=== PATIENT | male | born 1975 | race Two or more races ===

== ENCOUNTER 2025-03-14 16:06 | Inpatient (IN) | payer OTHER, SELFPAY ==
--- NOTE | ~2025-03-14 | MR_ITS ---
CLINICAL HISTORY: elevated lfts -?choledocholithiasis MR abdomen without, MRCP without gadolinium Comparison: None provided Findings: Lung bases are clear. Liver, adrenal glands, kidneys, and pancreas are within normal limits. Large amount of small filling defects are noted within the gallbladder consistent with layering small stones. Few small filling defects are also noted within the cystic duct. Small filling defect is also noted within the common bile duct ( coronal image 14 in series 4) CBD is mildly dilated measuring 1.0 cm in diameter moderately distended gallbladder with diffuse gallbladder wall thickening measuring 6.2 mm in thickness as well as small Amparo cholecystic free fluid. The solid organs are within normal limits. IMPRESSION: Moderately distended gallbladder with large amount of layering small stones, moderate gallbladder wall thickening and pericholecystic fluid. Filling defects are noted within the cystic duct and common bile duct, consistent with acute cholecystitis and choledocholithiasis. This document has been electronically signed by: Henri Saravia MD on 03/14/2025 21:52:03
--- NOTE | ~2025-03-14 | CT_ITS ---
CLINICAL HISTORY: RUQ tenderness CT abdomen and pelvis with contrast Comparison: None provided Findings: The lung bases are clear. Markedly distended gallbladder with moderate gallbladder wall thickening and pericholecystic stranding. No definite radiopaque gallstone is seen. Mildly prominent CBD measuring up to 9 mm in diameter. Mild central intrahepatic ductal dilation. Findings are concerning for acute cholecystitis. Solid organs are grossly unremarkable. No bowel obstruction, pneumoperitoneum, or pneumatosis. Pelvic contents unremarkable. Normal appendix. No acute fracture. IMPRESSION: Markedly distended gallbladder with moderate gallbladder wall thickening and pericholecystic stranding. No definite radiopaque gallstone is seen. Mildly prominent CBD measuring up to 9 mm in diameter. Mild central intrahepatic ductal dilation. Findings are concerning for acute cholecystitis. Right upper quadrant ultrasound is recommended for further evaluation. This document has been electronically signed by: Henri Saravia MD on 03/14/2025 19:20:17
--- NOTE | ~2025-03-14 | FL_ITS ---
EXAMINATION: FL GUIDANCE ONLY HISTORY: ERCP COMPARISON: Correlation is made with an MRCP dated 03/14/2025. TECHNIQUE: Fluoroscopy time: 1 minute, 51.5 seconds. Cumulative Dose: 33.469 mGy. DAP: 14.559 mGym2 Images: 9. FINDINGS: Fluoroscopic spot films demonstrate a normal caliber common bile duct. The initial images demonstrate filling defects in the distal common bile duct, consistent with the calculi noted on MRCP. The calculi are not identified on subsequent images. FL/FL guidance in OR IMPRESSION: Fluoroscopy during procedure. Please see procedure report for additional information. Electronically signed by: Mono Huff MD 03/19/2025 07:02 AM EDT
--- NOTE | ~2025-03-14 | US_ITS ---
CLINICAL HISTORY: RUQ pain US abdomen limited. COMPARISON: None provided. Technique: Real time sonographic imaging, including color-flow imaging, was performed by the senior packaging engineer. Multiple inside outside sales representative static images were saved for review. FINDINGS: The visualized portions of the pancreas appear normal. The liver has normal echotexture. The main portal vein is antegrade. Liver, right lobe size: 16.8 cm, borderline enlarged The gallbladder is normal in size. Multiple small cholelithiasis present. Likely sludge present within the gallbladder. No pericholecystic fluid. There is a positive sonographic Tomlinson's sign. Gallbladder wall: 4 mm, thickened Common bile duct: 5 mm, normal. Right kidney: Cortical medullary differentiation is maintained. Normal color flow by Doppler. No calculus or focal parenchymal abnormality identified. No hydronephrosis. Right kidney length: 10.3 cm No free intraperitoneal fluid identified. IMPRESSION: 1. Probable cholecystitis. Gallbladder wall thickening, positive sonographic Tomlinson's sign and multiple small cholelithiasis present. This document has been electronically signed by: Igor Case MD on 03/14/2025 18:01:22
[2025-03-14 16:14] VITALS: BP 125/72; PULSE 80; RESP 16; TEMP 37.2; O2SAT 98; BMI 32.8
--- NOTE | 2025-03-14 16:26 | ECG_ITS ---
Test Reason : ap Blood Pressure : */* mmHG Vent. Rate : 86 BPM Atrial Rate : 86 BPM P-R Int : 136 ms QRS Dur : 80 ms QT Int : 350 ms P-R-T Axes : 2 26 -1 degrees QTcB Int : 418 ms Normal sinus rhythm Normal ECG No previous ECGs available Referred By: Josue Gutierrez Electronically Signed By: DIANE REYNOLDS MD
--- NOTE | 2025-03-14 16:28 | ED.GENADULT ---
HPI - General Adult General Chief complaint: Abdominal Pain Stated complaint: abd pain Time Seen by Provider: 03/14/25 17:35 Source: patient and competitive shopper Mode of arrival: ambulatory Limitations: no limitations History of Present Illness ED Provider: DR. Del Rio HPI narrative: A 49-year-old male came in for evaluation of right side abdominal pain x 2 weeks pain is been intermittent associated with nausea, vomiting, patient also reports dark orange urine for the past 2 weeks, patient s/p gastric sleeve bypass 5 years ago at [facility] but he notice decreased p.o. intake and he is losing more weight than usual. No fever, no chills, normal bowel movement, passing flatus. Related Data Home Medications ?Medication ?Instructions ?Recorded ?Confirmed No Known Home Meds 03/14/25 03/14/25 Allergies Allergy/AdvReac Type Severity Reaction Status Date / Time No Known Allergies Allergy Verified 03/14/25 16:17 Review of Systems Review of Systems: All other systems are reviewed and are negative Constitutional: Reports as per HPI and Reports no additional constitutional complaints Eyes: Reports as per HPI and Reports no additional eye complaints Reports system reviewed and no additional complaints, except as documented Cardiovascular: Reports as per HPI and Reports no additional cardiovascular complaints Respiratory: Reports as per HPI and Reports no additional respiratory complaints Gastrointestinal: Reports as per HPI and Reports no additional gastrointestinal complaints Genitourinary: Reports no additional female genitourinary complaints Musculoskeletal: Reports no additional musculoskeletal complaints Skin/Breast: Reports system reviewed and no additional complaints, except as docu Psychiatric: Reports no additional psychiatric complaints Endocrine: Reports no additional endocrine complaints Hematologic/Lymphatic: Reports no additional hematologic/lymphatic complaints Allergic/Immunologic: Reports no additional allergic/immunologic complaints Reports system reviewed and no additional complaints, except as documented and Reports Abnormal speech present [facility] Social History Social History Household Members: Spouse Housing: Apartment Do you presently have visiting nurse or other home services: No Patient Tobacco Use Status: Never used Tobacco Smoked in Last 30 Days: No e-Cigarette/Vaping Use: Never Used Second Hand Smoke Exposure: No Use of substances other than those prescribed or required for medical reasons: No Currently Displaying Signs/Symptoms of Drug Intoxication Withdrawal: No Have you been hit, kicked, punched, or otherwise hurt by someone within the past year? If so, by whom?: No Do you feel safe in your current relationship?: Yes Is there a partner from a previous relationship who is making you feel unsafe now?: No Are you made to feel afraid or neglected: No Advance Directives: No Advance Directives Information Provided: No Do you have a plan to hurt others: No Plan Recently lost weight without trying: No Eating poorly because of decreased appetite: No Nutrition Risks: No Nutritional Risk Poor oral hygiene: No Physical Exam ED Vital Signs: Vital Signs - 24 hr 03/14/25 16:14 03/14/25 17:35 Temperature 98.9 F 97.9 F Pulse Rate 80 96 Respiratory Rate 16 15 Blood Pressure 125/72 113/67 Pulse Oximetry 98 99 Oxygen Delivery Method Room Air Room Air BMI result Body Mass Index 32.8 Vital signs have been reviewed and appear to be correct. Blood pressure elevated. Heart rate normal. Respiratory rate normal. Temperature normal. Oxygen saturation normal. Appearance: Alert. Oriented X3. No acute distress. Head: Normal external exam. Normocephalic. Atraumatic. No Ulloa signs noted. No raccoon eyes noted Eyes: PERRLA. EOMI. Conjunctiva and sclera normal. Eyelids normal. ENT: TM's Normal. Pharynx normal. Uvula midline. Moist mucous membranes. No trismus noted. No drooling noted. No muffled voice noted. Neck: Normal inspection. Neck supple. FROM. No adenopathy. Thyroid Normal. No meningeal signs. No neck mass noted. CVS: Normal heart rate and rhythm. Heart sound normal. No murmurs noted. Pulses normal throughout. Respiratory: No respiratory distress. Painless inspiration. Breath sounds normal. No wheezes/rales/rhonchi noted. Chest nontender. No accessory muscle usage noted or decreased air movement noted. Abdomen: Soft, RUQ tenderness, +Tomlinson signs, +epigastric tenderness. Bowel sounds normal in all 4 quadrants. No distention noted. No organomegaly noted. No visible injury noted. Back: No CVA tenderness. Full range of motion noted. Skin: Skin warm and dry. Normal skin color. Normal skin turgor. No rashes/lesions/lacerations noted. Extremities: No lower extremity edema. Extremities exhibit normal range of motion. Extremities nontender. Neuro: Oriented X 3. Cranial nerve exam: II-XII are grossly intact No motor deficit. No sensory deficit. Reflexes normal. Course Course Course Narrative: RME: 49-year-old male presents to ED for epigastric right upper quadrant pain described as sharp stabbing and acid reflux. Patient denies any fever chills chest pain or shortness of breath. Physical exam positive epigastric right upper quadrant tenderness on palpation. Reevaluation(s) Reevaluation #1: A 49-year-old male with 2 weeks of right upper quadrant abdominal pain seen by his PCP and was treated for gastritis, patient returned today for persistence of pain with nausea and vomiting, workup revealed acute cholecystitis with mild pancreatitis and transaminitis. IV hydration, IV Zosyn. Admission. Time: 19:30 Reevaluation #2: CT is consistent with acute cholecystitis with CBD dilation, the case was discussed with Dr. Gilliam who will admit the patient. And get inpatient MRCP. Time: 20:24 Medications Administered Generic Name Dose Route Start Last Admin Trade Name Freq PRN Reason Stop Dose Admin Enoxaparin Sodium 40 mg 03/14/25 21:00 03/14/25 20:56 Enoxaparin Sodium 40 Mg/0.4 Ml Syringe SUBCUT Not Given Q24H FRANCA Sodium Chloride 1,000 mls @ 150 mls/hr 03/14/25 20:30 03/15/25 10:41 Ns IVCONT 150 mls/hr .Q6H40M FRANCA Administration Piperacillin Sod/Tazobactam 50 mls @ 100 mls/hr 03/15/25 00:00 03/15/25 06:22 Sod 3.375 gm/ Sodium Chloride IV Infused RQ6H FRANCA Infusion Morphine Sulfate 4 mg 03/14/25 20:21 03/15/25 07:33 Morphine Sulfate 4 Mg/Ml Cartridge IVPUSH 4 mg Q4H PRN Administration Pain, Severe (Pain Scale 7-10) Protocol Sodium Chloride 3 ml 03/15/25 00:00 03/15/25 07:11 0.9 % Sodium Chloride Flush 3 Ml Syringe IVFLUSH Not Given QSHIFT FRANCA Discontinued Medications Generic Name Dose Route Start Last Admin Trade Name Freq PRN Reason Stop Dose Admin Sodium Chloride 1,000 mls @ 999 mls/hr 03/14/25 18:13 03/14/25 19:23 Ns IV 03/14/25 19:13 Infused .Q1H1M ONE Infusion Piperacillin Sod/Tazobactam 50 mls @ 100 mls/hr 03/14/25 18:13 03/14/25 18:49 Sod 3.375 gm/ Sodium Chloride IV 03/14/25 18:42 Infused ONCE ONE Infusion Iohexol 100 ml 03/14/25 18:38 03/14/25 18:40 Iohexol 350 Mg/Ml 100 Ml Infus..Btl IV 03/14/25 18:39 85 ml ONCE ONE Administration Medical Decision Making Differential Diagnosis Differential Diagnoses: The differential diagnosis associated with the presentation includes (Acute gastritis, acute esophagitis, acute cholecystitis, ureterolithiasis, pyelonephritis, pancreatitis, electrolyte derangement, severe anemia.) Admission/Observation Consideration of admission/observation: Escalation of care including admission/observation considered Consult Healthcare Provider Management of the patient was discussed with: Shoulder Joiner (Dr. Gilliam) Lab Data MDM Lab Attestation statement: I reviewed the patient's lab results. 03/15/25 06:05 03/15/25 06:05 Labs: Lab Results 03/14/25 03/14/25 03/14/25 Range/Units 16:57 17:40 18:26 WBC 10.2 (4.8-10.8) X10*3/uL RBC 4.67 (4.60-5.80) X10*6/uL Hgb 13.6 L (14.0-18.0) g/dl Hct 42.0 (42.0-52.0) % MCV 89.9 (80.0-98.0) fL MCH 29.1 (27.0-33.0) pg MCHC 32.4 (31.0-36.0) g/dl RDW 14.5 (11.0-16.0) % Plt Count 334 (160-400) X10*3/uL MPV 9.7 (9.4-12.4) fL Immature Gran % (Auto) 0.5 H (0.0-0.4) % Neut % (Auto) 65.9 (45-73) % Lymph % (Auto) 20.9 (20-40) % Howard % (Auto) 10.0 (2-11) % Eos % (Auto) 2.3 (0-4) % Baso % (Auto) 0.4 (0-2) % Lymph # (Auto) 2.1 (1.2-4.9) X10*3/uL Howard # (Auto) 1.0 (0.1-1.2) X10*3/uL Eos # (Auto) 0.2 (0.0-0.4) X10*3/uL Baso # (Auto) 0.0 (0.0-0.2) X10*3/uL Abs Immat Gran (auto) 0.05 H (0.00-0.03) X10*3/uL Absolute Neuts (auto) 6.7 (2.0-8.3) x10*3/uL Absolute Nucleated RBC 0.000 (0.0-0.012) X10*3/uL Nucleated RBC % (auto) 0.0 (0.0-0.2) /100WBC PT 12.6 H (10.9-12.4) SEC INR 1.1 (0.9-1.1) APTT 30.3 (26.0-36.8) SEC Sodium 140 (135-145) mmol/L Potassium 3.6 (3.3-5.1) mmol/L Chloride 102 (96-108) mmol/L Carbon Dioxide 28 (22-29) mmol/L Anion Gap 14 (12-20) BUN 10 (9-16) mg/dL Creatinine 0.79 (0.5-1.4) mg/dL Estim Creat Clear Calc 122.8 Estimated GFR > 60 Random Glucose 164 H (60-115) mg/dL Lactic Acid 1.1 (0.5-2.0) mmol/L Calcium 9.4 (8.4-10.2) mg/dL Total Bilirubin 2.0 H (0.0-1.0) mg/dL AST 205 H (5-37) U/L ALT 372 H (0-40) U/L Alkaline Phosphatase 633 H (39-117) U/L Troponin I High Sens < 2.7 (<3.5-35.0) ng/L B-Natriuretic Peptide 15 (<100) pg/mL Total Protein 7.3 (6.5-8.0) g/dL Albumin 3.9 (3.5-5.0) g/dL Lipase 133 H (8-78) U/L Urine Color DK YELLOW Urine Appearance Clear Urine pH 5.5 (5.0-9.0) Ur Specific [place] >= 1.030 H (1.005-1.025) Urine Protein 30 (1+) H (Neg-Trace) mg/dL Urine Glucose (UA) 100 H (Negative) mg/dL Urine Ketones Trace (Negative) mg/dL Urine Blood Negative (Negative) Urine Nitrite Positive H (Negative) Ur Leukocyte Esterase Negative (Negative) Urine RBC 0-2 (0-2) /HPF Urine WBC 0-5 (0-5) /HPF Ur Squamous Epith Cells 3-5 (0-2) /HPF Urine Bacteria None Seen (None Seen) Hyaline Casts 0-2 (0-2) /LPF Granular Casts Present Independent Interpretation I performed an independent interpretation of an: Ultrasound (Abdomen:. Probable cholecystitis. Gallbladder wall thickening, positive sonographic Tomlinson's sign and multiple small cholelithiasis present.) Radiology Impression Discussion of test interpretation with radiology: I have reviewed the radiologist's reading. Discharge Plan Discharge Clinical Impression: Acute cholecystitis, Transaminitis Patient Disposition: Admitted As Inpatient Interventions: Admission Worksheet (ED) Last Done: 03/14/25 23:46 Discharge Date/Time: 03/15/25 00:44
[2025-03-14 17:02] LABS: MANUAL DIFF FLAG NO
[2025-03-14 17:04] LABS: Appearance Urine Clear; Glucose Urine UA 100 mg/dL (Negative); PH 5.5 (5.0-9.0); Specific Gravity - Urine >= 1.030 (1.005-1.025); UMIC TRIGGER UACC YES
[2025-03-14 17:06] LABS: Hematocrit 42.0 % (42.0-52.0); Hemoglobin 13.6 g/dl (14.0-18.0); Imm Gran Abs Auto 0.05 X10*3/uL (0.00-0.03); Imm Gran Pct Auto 0.5 % (0.0-0.4); Lymphocytes Absolute Auto 2.1 X10*3/uL (1.2-4.9); Mean Corpuscular HGB Conc 32.4 g/dl (31.0-36.0); Mean Corpuscular Hemoglobin 29.1 pg (27.0-33.0); Mean Corpuscular Volume 89.9 fL (80.0-98.0); NRBC Abs Auto 0.000 X10*3/uL (0.0-0.012); NRBC Pct Auto 0.0 /100WBC (0.0-0.2); Platelet Count 334 X10*3/uL (160-400); Red Blood Count 4.67 X10*6/uL (4.60-5.80); White Blood Count 10.2 X10*3/uL (4.8-10.8)
[2025-03-14 17:12] LABS: INTERNATIONAL NORM RATIO 1.1 (0.9-1.1); Prothrombin Time 12.6 SEC (10.9-12.4)
[2025-03-14 17:15] LABS: Partial Thromboplastin Time 30.3 SEC (26.0-36.8)
[2025-03-14 17:23] LABS: Lipase 133 U/L (8-78)
[2025-03-14 17:26] LABS: UACC Culture Trigger YES
[2025-03-14 17:28] LABS: B Type Natriuretic Peptide 15 pg/mL (<100)
[2025-03-14 17:34] LABS: Troponin-I High Sensitivity < 2.7 ng/L (<3.5-35.0)
[2025-03-14 17:35] VITALS: BP 113/67; PULSE 96; RESP 15; TEMP 36.6; O2SAT 99
[2025-03-14 17:58] LABS: Alanine Aminotransferase 372 U/L (0-40); Albumin Level 3.9 g/dL (3.5-5.0); Alkaline Phosphatase 633 U/L (39-117); Anion Gap 14 (12-20); Aspartate Amino Transferase 205 U/L (5-37); Blood Urea Nitrogen 10 mg/dL (9-16); Calcium 9.4 mg/dL (8.4-10.2); Carbon Dioxide 28 mmol/L (22-29); Chloride 102 mmol/L (96-108); Creatinine Clr Calc Pharmacy 122.8; Estimated Glomerular Filt Rate > 60; Potassium 3.6 mmol/L (3.3-5.1); Sodium 140 mmol/L (135-145); Total Protein 7.3 g/dL (6.5-8.0)
[2025-03-14] MEDS: iohexoL 350 MG/ML 100 ML INFUS..BTL IV (18:40)
--- NOTE | 2025-03-14 21:00 | PC.NURSE ---
re: delay in maintenance fluid admin: pt taken in MRI for MRCP at this time
[2025-03-14 21:20] VITALS: BP 134/61; PULSE 75; RESP 16; TEMP 36.8; O2SAT 98
--- NOTE | 2025-03-14 21:29 | PHA.MEDREC ---
Pharmacy Consult ? Medication Reconciliation Pharmacy has completed the medication reconciliation. Spoke to patient and pt confirmed he is not taking any medication at home. He was prescribed sucralfate recently for abdominal pain and multivitamin to start taking after finishing a course of the sucralfate. The patient didn't feel that the sucralfate helped his pain so he stopped taking it hence he hasn't started taking the multivitamin yet.
[2025-03-14 22:11] LABS: Lipase 131 U/L (8-78)
--- NOTE | 2025-03-14 22:19 | PC.NURSE ---
Summary of care: A 49yo M presents to ED from home for evaluation of R abdominal pain x 2 weeks. Pt A&O x4 independent with ADL's at baseline, fully ambulatory, pleasant, and cooperative with care. evaluation of right side abdominal pain x 2 weeks. Pt rates his pain 3/10, intermittent, with nausea, vomiting. Labs were obtained and 20g IV in R-AC was placed. LFT's elevated, pt had CT which was significant for acute cholecystitis. Pt was admitted to Surgery service, MRCP obtained tonight- Pt NPO at this time. NS infusing at 150ml/hr. Plan is for further eval and tx of acute cholecystitis.
--- NOTE | 2025-03-15 00:13 | P.HPGS_ITS ---
History of Present Illness History of Present Illness Date of Service: 03/15/25 Chief complaint: abdo pain Narrative: Danish Head is a 49 year old male who resents to the ER with a 2 week history of not feeling well- he has been having vomiting and abdominal pain - epigastric area and to the right upper quadrant. Recently noted that urine has been very dark. He went to see his pcp who thought maybe he had an ulcer and gave him sucralfat which didnt do much. the symptms were woresening including the pain and so he came here to be evaluated. Here lfts noted to be elevated, u/s showing cholecystitis and dilated CBD - MRCP carried out [facility] shows stones in GB, BCD and cystic duct. Pt feeling better now Pt is s/p sleeve gastrectomy at [facility] 5 yrs ago adn has lost 100lbs. [facility] Social History Social History Patient Tobacco Use Status: Never used Tobacco Smoked in Last 30 Days: No Use of substances other than those prescribed or required for medical reasons: No Advance Directives: No Advance Directives Information Provided: No Do you have a plan to hurt others: No Plan Meds Allergies Allergy/AdvReac Type Severity Reaction Status Date / Time No Known Allergies Allergy Verified 03/14/25 16:17 Active Medications: Current Medications Enoxaparin Sodium (Enoxaparin Sodium 40 Mg/0.4 Ml Syringe) 40 mg SUBCUT Q24H [facility] Last Admin: 03/14/25 20:56 Dose: Not Given Sodium Chloride (Ns) 1,000 mls @ 150 mls/hr IVCONT .Q6H40M [facility] Last Admin: 03/14/25 21:19 Dose: 150 mls/hr Piperacillin Sod/Tazobactam (Sod 3.375 gm/ Sodium Chloride) 50 mls @ 100 mls/hr IV RQ6H [facility] Morphine Sulfate (Morphine Sulfate 4 Mg/Ml Cartridge) 4 mg IVPUSH Q4H PRN; Protocol PRN Reason: Pain, Severe (Pain Scale 7-10) Sodium Chloride (0.9 % Sodium Chloride Flush 3 Ml Syringe) 3 ml IVFLUSH QSHIFT [facility] Home Medications ?Medication ?Instructions ?Recorded ?Confirmed ?Last Taken ?Type No Known Home Meds 03/14/25 03/14/25 Un known History Physical Exam Vital Signs: Vital Signs: Last Vital Signs Temp 98.2 F 03/14/25 21:20 Pulse 75 03/14/25 21:20 Resp 16 03/14/25 21:20 BP 134/61 03/14/25 21:20 Pulse Ox 98 03/14/25 21:20 O2 Del Method Room Air 03/14/25 21:20 BMI result Body Mass Index 32.8 Const: General: cooperative, healthy appearing and comfortable Orientation/consciousness: oriented to time Limitations: crutches Eyes: Other: mild jaundice GI: Other: abdomen -soft mild tender nondistended Neuro: General: oriented to time Results Results Labs: Short CBC 03/14/25 Range/Units 16:57 WBC 10.2 (4.8-10.8) X10*3/uL Hgb 13.6 L (14.0-18.0) g/dl Hct 42.0 (42.0-52.0) % Plt Count 334 (160-400) X10*3/uL BMP 03/14/25 17:40 Sodium 140 Potassium 3.6 Chloride 102 Carbon Dioxide 28 BUN 10 Creatinine 0.79 Calcium 9.4 Liver Function 03/14/25 Range/Units 17:40 Total Bilirubin 2.0 H (0.0-1.0) mg/dL AST 205 H (5-37) U/L ALT 372 H (0-40) U/L Alkaline Phosphatase 633 H (39-117) U/L Albumin 3.9 (3.5-5.0) g/dL Urine 03/14/25 Range/Units 16:57 Urine Color DK YELLOW Urine Appearance Clear Urine pH 5.5 (5.0-9.0) Ur Specific [place] >= 1.030 H (1.005-1.025) Urine Protein 30 (1+) H (Neg-Trace) mg/dL Urine Glucose (UA) 100 H (Negative) mg/dL Additional studies: [facility] ? Diagnostics Subcategory All Activity ??:?? All Time ??:?? All Subcategories Filter Lab Imaging Microbiology Pathology Blood Bank Tests Cardiovascular Other DATE TYPE STATUS REF RANGE/AUTHOR Hx 03/14/25 21:52 Cholangiopancreatography MRI Signed Henri Saravia 03/14/25 19:20 Abdomen/Pelvis CT Signed Henri Saravia 03/14/25 18:01 Abdomen Ultrasound Signed Igor Case Joel Acute 49, M?1975 MRN#? [id number] ADM IN,?HO.S3??386?-1? 5ft 7in 209lb 3.499oz BSA: 2.12m? BMI: 32.8kg/m? Acc#? [id number] Full Code Allergies No Known Allergies Problems ? ONSET Gallstone pancreatitis Transaminitis Acute cholecystitis Vital Signs 03/14/25 21:20 BP 134/61? Pulse 75? Resp 16? Temp 98.2 F? O2 Sat 98? Delivery Room Air? Home Meds Confirmed Prescription Monitoring Program MEDICATIONS (INSTRUCTIONS) LAST TAKEN Active No Known Home Meds My Widget No Data to Display Diagnostics Reports Danish Topete??49??M??1975 ? Allergy/Adv: No Known Allergies Close Cholangiopancreatography MRI (Signed) Henri Saravia - 03/14/25 Abdomen/Pelvis CT (Signed) ManjitHenri - 03/14/25 Abdomen Ultrasound (Signed) Igor Case - 03/14/25 Launch?Image [place] [id number] Magnetic Resonance Report Signed with Sammie Patient: Danish Topete MR#: [id number] : 1975 Acct:[id number] Age/Sex: 49 / M ADM Date: 03/14/25 Loc: [facility]: Loan Gilliam MD Ordering Physician: Loan Gilliam MD Date of Service: 03/14/25 Procedure(s): MR MRCP Accession Number(s): [id number] cc: Physician,None ; Loan Gilliam MD~ ADDENDUMThis document has been electronically signed by: Henri Saravia MD on 03/14/2025 21:52:03 ADDENDUM: This report was discussed with Almita Vega Supervisor Special Services on Mar 14, 2025 22:07:00 EDT. This document has been electronically signed by: Cierra Tellez on 03/14/2025 22:07:29 Addendum Dictated By: Henri Saravia MD Addendum Signed By: <Electronically signed by Henri Saravia MD in [place]> 03/14/252207 Addendum Cosigned By: DD/ /05/2151 TD/TT: 03/14/2512/04/2206 CLINICAL HISTORY: elevated lfts -?choledocholithiasis MR abdomen without, MRCP without gadolinium Comparison: None provided Findings: Lung bases are clear. Liver, adrenal glands, kidneys, and pancreas are within normal limits. Large amount of small filling defects are noted within the gallbladder consistent with layering small stones. Few small filling defects are also noted within the cystic duct. Small filling defect is also noted within the common bile duct ( coronal image 14 in series 4) CBD is mildly dilated measuring 1.0 cm in diameter moderately distended gallbladder with diffuse gallbladder wall thickening measuring 6.2 mm in thickness as well as small Amparo cholecystic free fluid. The solid organs are within normal limits. IMPRESSION: Moderately distended gallbladder with large amount of layering small stones, moderate gallbladder wall thickening and pericholecystic fluid. Filling defects are noted within the cystic duct and common bile duct, consistent with acute cholecystitis and choledocholithiasis. This document has been electronically signed by: Henri Saravia MD on 03/14/2025 21:52:03 Dictated By: Henri Saravia MD Signed By: <Electronically signed by Henri Saravia MD in [place]> 03/14/252152 DD/ 51 TD/TT: 03/14/252151 Sole Inker: Assessment and Plan (1) Gallstone pancreatitis: Status: Acute Plan 49 yo male with with gallstone pancreatitis - stones in CBD and cholecystitis- plan to admit , npo ivf, GI consult, repeat labs, iv Zosyn may need ERCP and then lap heidi Quality Stroke Does the patient have a stroke diagnosis?: No VTE Prior VTE?: No VTE Risk Level:: Surgical - low VTE Device Contraindication: N/A - Device Ordered VTE Drug Contraindication: N/A - Med Ordered Procedures Date of Service Date of Service: 03/15/25
[2025-03-15 00:36] VITALS: BMI 33.0
[2025-03-15 01:06] VITALS: BP 136/67; PULSE 72; RESP 18; TEMP 36.5; O2SAT 99
[2025-03-15 03:34] VITALS: BP 120/59; PULSE 80; RESP 20; TEMP 36.4; O2SAT 96
[2025-03-15 07:14] LABS: MANUAL DIFF FLAG NO
[2025-03-15 07:25] VITALS: BP 126/73; PULSE 60; RESP 16; TEMP 36.8; O2SAT 97
[2025-03-15 07:26] LABS: Hematocrit 35.1 % (42.0-52.0); Hemoglobin 11.4 g/dl (14.0-18.0); Imm Gran Abs Auto 0.04 X10*3/uL (0.00-0.03); Imm Gran Pct Auto 0.5 % (0.0-0.4); Lymphocytes Absolute Auto 1.6 X10*3/uL (1.2-4.9); Mean Corpuscular HGB Conc 32.5 g/dl (31.0-36.0); Mean Corpuscular Hemoglobin 29.3 pg (27.0-33.0); Mean Corpuscular Volume 90.2 fL (80.0-98.0); NRBC Abs Auto 0.000 X10*3/uL (0.0-0.012); NRBC Pct Auto 0.0 /100WBC (0.0-0.2); Platelet Count 310 X10*3/uL (160-400); Red Blood Count 3.89 X10*6/uL (4.60-5.80); White Blood Count 8.5 X10*3/uL (4.8-10.8)
[2025-03-15 07:33] VITALS: RESP 17
[2025-03-15 07:49] LABS: Alanine Aminotransferase 306 U/L (0-40); Albumin Level 3.2 g/dL (3.5-5.0); Alkaline Phosphatase 490 U/L (39-117); Anion Gap 11 (12-20); Aspartate Amino Transferase 168 U/L (5-37); Blood Urea Nitrogen 9 mg/dL (9-16); Calcium 8.7 mg/dL (8.4-10.2); Carbon Dioxide 27 mmol/L (22-29); Chloride 108 mmol/L (96-108); Creatinine Clr Calc Pharmacy 126.4; Estimated Glomerular Filt Rate > 60; Potassium 4.1 mmol/L (3.3-5.1); Sodium 142 mmol/L (135-145); Total Protein 6.1 g/dL (6.5-8.0)
--- NOTE | 2025-03-15 09:09 | PM.PNGS ---
Subjective Subjective Date of Service: 03/15/25 Interval history: Feels improved this morning with less abdominal pain. Pain was in the right upper quadrant radiating to the back. Physical Exam Vital Signs: Vital Signs: Last Vital Signs Temp 98.3 F 03/15/25 07:25 Pulse 60 03/15/25 07:25 Resp 17 03/15/25 07:33 BP 126/73 03/15/25 07:25 Pulse Ox 97 03/15/25 07:25 O2 Del Method Room Air 03/15/25 07:25 BMI result Body Mass Index 33.0 Const: General: comfortable Nutritional Appearance: well nourished Orientation/consciousness: patient oriented x3 Limitations: no limitations Resp: Effort & Inspection: normal respiratory effort GI: Inspection: Yes normal to inspection Palpation (GI): Soft to palpation, Tenderness to palpation present (GI) in the RUQ, no guarding and not rigid Percussion: Yes normal to percussion Neuro: General: patient oriented x3 Extrem: General: Yes normal to inspection Objective Data Active Medications Enoxaparin Sodium (Enoxaparin Sodium 40 Mg/0.4 Ml Syringe) 40 mg SUBCUT Q24H COUNT INCLUDES [facility] Last Admin: 03/14/25 20:56 Dose: Not Given Documented By: SABRINA Non-Admin Reason: Not In Room Sodium Chloride (Ns) 1,000 mls @ 150 mls/hr IVCONT .Q6H40M COUNT INCLUDES THE [facility] Last Infusion: 03/15/25 06:22 Dose: 150 mls/hr Documented By: BALAJI Piperacillin Sod/Tazobactam (Sod 3.375 gm/ Sodium Chloride) 50 mls @ 100 mls/hr IV RQ6H COUNT INCLUDES [facility] Last Infusion: 03/15/25 06:22 Dose: Infused Documented By: BALAJI Morphine Sulfate (Morphine Sulfate 4 Mg/Ml Cartridge) 4 mg IVPUSH Q4H PRN; Protocol PRN Reason: Pain, Severe (Pain Scale 7-10) Last Admin: 03/15/25 07:33 Dose: 4 mg Documented By: EDWARD Sodium Chloride (0.9 % Sodium Chloride Flush 3 Ml Syringe) 3 ml IVFLUSH QSHIFT COUNT INCLUDES [facility] Last Admin: 03/15/25 07:11 Dose: Not Given Documented By: EDWARD Non-Admin Reason: IV Running Labs 03/15/25 06:05 03/15/25 06:05 Labs: Laboratory Results - last 24 hr 03/14/25 03/14/25 03/14/25 16:57 17:40 18:26 MCV 89.9 MCH 29.1 MCHC 32.4 RDW 14.5 Plt Count 334 MPV 9.7 Immature Gran % (Auto) 0.5 H Neut % (Auto) 65.9 Lymph % (Auto) 20.9 [place] % (Auto) 10.0 Eos % (Auto) 2.3 Baso % (Auto) 0.4 Lymph # (Auto) 2.1 [place] # (Auto) 1.0 Eos # (Auto) 0.2 Baso # (Auto) 0.0 Abs Immat Gran (auto) 0.05 H Absolute Neuts (auto) 6.7 Absolute Nucleated RBC 0.000 Nucleated RBC % (auto) 0.0 PT 12.6 H INR 1.1 APTT 30.3 Anion Gap 14 Estim Creat Clear Calc 122.8 Estimated GFR > 60 Random Glucose 164 H Lactic Acid 1.1 Calcium 9.4 Total Bilirubin 2.0 H AST 205 H ALT 372 H Alkaline Phosphatase 633 H Troponin I High Sens < 2.7 B-Natriuretic Peptide 15 Total Protein 7.3 Albumin 3.9 Lipase 133 H Urine Color DK YELLOW Urine Appearance Clear Urine pH 5.5 Ur Specific [place] >= 1.030 H Urine Protein 30 (1+) H Urine Glucose (UA) 100 H Urine Ketones Trace Urine Blood Negative Urine Nitrite Positive H Ur Leukocyte Esterase Negative Urine RBC 0-2 Urine WBC 0-5 Ur Squamous Epith Cells 3-5 Urine Bacteria None Seen Hyaline Casts 0-2 Granular Casts Present 03/14/25 03/15/25 21:48 06:05 MCV 90.2 MCH 29.3 MCHC 32.5 RDW 14.6 Plt Count 310 MPV 10.2 Immature Gran % (Auto) 0.5 H Neut % (Auto) 64.8 Lymph % (Auto) 19.4 L [place] % (Auto) 11.2 H Eos % (Auto) 3.4 Baso % (Auto) 0.7 Lymph # (Auto) 1.6 [place] # (Auto) 1.0 Eos # (Auto) 0.3 Baso # (Auto) 0.1 Abs Immat Gran (auto) 0.04 H Absolute Neuts (auto) 5.5 Absolute Nucleated RBC 0.000 Nucleated RBC % (auto) 0.0 PT INR APTT Anion Gap 11 L Estim Creat Clear Calc 126.4 Estimated GFR > 60 Random Glucose 84 Lactic Acid Calcium 8.7 D Total Bilirubin 1.8 H AST 168 H ALT 306 H Alkaline Phosphatase 490 H Troponin I High Sens B-Natriuretic Peptide Total Protein 6.1 L Albumin 3.2 L Lipase 131 H Urine Color Urine Appearance Urine pH Ur Specific [place] Urine Protein Urine Glucose (UA) Urine Ketones Urine Blood Urine Nitrite Ur Leukocyte Esterase Urine RBC Urine WBC Ur Squamous Epith Cells Urine Bacteria Hyaline Casts Granular Casts Imaging MRI - abdomen: My impression: Filling defect in distal common bile duct consistent with choledocholithiasis (red arrow), multiple small gallstones within the gallbladder with wall thickening: Procedures Date of Service Date of Service: 03/15/25 Progress Note: A&P Assessment and plan (1) Gallstone pancreatitis: Status: Acute (2) Acute cholecystitis: Status: Acute (3) Choledocholithiasis: Status: Acute Plan 49-year-old male patient admitted with abdominal pain in the right upper quadrant radiating to the back found to have elevated LFTs. MRI reveals evidence of acute cholecystitis due to cholelithiasis as well as choledocholithiasis. GI consulted for possible ERCP. We will keep NPO pending GI evaluation. Time Spent With Patient Time: Total time managing care of this patient today ____ minutes. Quality Stroke Does the patient have a stroke diagnosis?: No VTE Prior VTE?: No VTE Risk Level:: Surgical - low VTE Device Contraindication: N/A - Device Ordered VTE Drug Contraindication: N/A - Med Ordered
--- NOTE | 2025-03-15 10:10 | PM.GICN ---
History of Present Illness Data of Consult Service Date: 03/15/25 Requesting physician: Dewayne Bell Primary Care Provider: None Physician HPI Reason for consult: CBD stone 49 year old male seen at [facility] on 03/14/25 with epigastric/RUQ pain nausea and vomiting for the past two weeks. He notes sharp pains associated with sudden movements and sometimes it feels like a knot. Patient complains of chills, dry mouth, nausea and vomiting and denies fevers. Recently noted that urine has been very dark. Patient denies heartburn, dysphagia, recent change in bowel habits. He went to see his pcp who thought maybe he had an ulcer and gave him sucralfate which was not helpful. PT came to the ED worsening symptoms. Labs showed elevated LFTs. Pt is s/p sleeve gastrectomy at [facility] 5 yrs ago and has lost 100 lbs. Abd pain improved to 4-5/10 (from 7/10 yesterday) after pain medications. Patient denies having a colonoscopy in the past and is interested in scheduling 1 as an outpatient. 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 FAMILY HX: He denies known family history of gallbladder disease, colon polyps or GI malignancy 03/14/[address] SCAN SHOWED: Markedly distended gallbladder with moderate gallbladder wall thickening and pericholecystic stranding. No definite radiopaque gallstone is seen. Mildly prominent CBD measuring up to 9 mm in diameter. Mild central intrahepatic ductal dilation. Findings are concerning for acute cholecystitis. Right upper quadrant ultrasound is recommended for further evaluation. 03/14/25 MRCP SHOWED: Moderately distended gallbladder with large amount of layering small stones, moderate gallbladder wall thickening and pericholecystic fluid. Filling defects are noted within the cystic duct and common bile duct, consistent with acute cholecystitis and choledocholithiasis. Review of Systems Review of Systems: Yes all other systems are reviewed and are negative [facility] Social History Social History Household Members: Spouse Housing: Apartment Do you presently have visiting nurse or other home services: No Patient Tobacco Use Status: Never used Tobacco Smoked in Last 30 Days: No e-Cigarette/Vaping Use: Never Used Second Hand Smoke Exposure: No Use of substances other than those prescribed or required for medical reasons: No Currently Displaying Signs/Symptoms of Drug Intoxication Withdrawal: No Have you been hit, kicked, punched, or otherwise hurt by someone within the past year? If so, by whom?: No Do you feel safe in your current relationship?: Yes Is there a partner from a previous relationship who is making you feel unsafe now?: No Are you made to feel afraid or neglected: No Advance Directives: No Advance Directives Information Provided: No Do you have a plan to hurt others: No Plan Recently lost weight without trying: No Eating poorly because of decreased appetite: No Nutrition Risks: No Nutritional Risk Poor oral hygiene: No Meds Allergies Allergy/AdvReac Type Severity Reaction Status Date / Time No Known Allergies Allergy Verified 03/14/25 16:17 Active Medications: Current Medications Enoxaparin Sodium (Enoxaparin Sodium 40 Mg/0.4 Ml Syringe) 40 mg SUBCUT Q24H [facility] Last Admin: 03/14/25 20:56 Dose: Not Given Sodium Chloride (Ns) 1,000 mls @ 150 mls/hr IVCONT .Q6H40M [facility] Last Infusion: 03/15/25 06:22 Dose: 150 mls/hr Piperacillin Sod/Tazobactam (Sod 3.375 gm/ Sodium Chloride) 50 mls @ 100 mls/hr IV RQ6H [facility] Last Infusion: 03/15/25 06:22 Dose: Infused Morphine Sulfate (Morphine Sulfate 4 Mg/Ml Cartridge) 4 mg IVPUSH Q4H PRN; Protocol PRN Reason: Pain, Severe (Pain Scale 7-10) Last Admin: 03/15/25 07:33 Dose: 4 mg Sodium Chloride (0.9 % Sodium Chloride Flush 3 Ml Syringe) 3 ml IVFLUSH QSHIFT [facility] Last Admin: 03/15/25 07:11 Dose: Not Given Home Medications ?Medication ?Instructions ?Recorded ?Confirmed ?Last Taken ?Type No Known Home Meds 03/14/25 03/14/25 Unknown History Physical Exam Vital Signs: Vital Signs: Last Vital Signs Temp 98.3 F 03/15/25 07:25 Pulse 60 03/15/25 07:25 Resp 17 03/15/25 07:33 BP 126/73 03/15/25 07:25 Pulse Ox 97 03/15/25 07:25 O2 Del Method Room Air 03/15/25 07:25 BMI result Body Mass Index 33.0 Const: General: healthy appearing and no acute distress Nutritional Appearance: obese Orientation/consciousness: patient oriented x3 Limitations: language barrier HEENT: Head: Yes normal to inspection Ears: hearing grossly normal bilaterally Eyes: Sclerae: sclerae normal Pupils: Equal, round and reactive pupils present Neck: Neck: Yes normal visual inspection Chest: Chest palpation & inspection: normal inspection of the chest Resp: Effort & Inspection: normal respiratory effort Auscultation: clear to auscultation bilaterally Cardio: Palpation: normal PMI Rate: regular rate Rhythm: regular rhythm Heart sounds: S1 normal heart sound present, S2 normal heart sound present and no murmurs GI: Palpation (GI): Soft to palpation, Tenderness to palpation present (GI) (Moderate epigastric and RUQ tenderness) and No hepatosplenomegaly present Auscultation: normal bowel sounds Rectal Exam - Male: Yes deferred Skin: General skin exam: no rashes or lesions noted Neuro: General: patient oriented x3, gait normal and moves all extremities Cranial nerves: Yes Equal, round and reactive pupils present Psych: Appearance: grossly normal Mental Status: mental status grossly normal Results Labs 03/15/25 06:05 03/15/25 06:05 Labs: Short CBC 03/14/25 03/15/25 Range/Units 16:57 06:05 WBC 10.2 8.5 (4.8-10.8) X10*3/uL Hgb 13.6 L 11.4 L (14.0-18.0) g/dl Hct 42.0 35.1 L (42.0-52.0) % Plt Count 334 310 (160-400) X10*3/uL BMP 03/14/25 03/15/25 17:40 06:05 Sodium 140 142 Potassium 3.6 4.1 Chloride 102 108 Carbon Dioxide 28 27 BUN 10 9 Creatinine 0.79 0.77 Calcium 9.4 8.7 D Liver Function 03/14/25 03/15/25 Range/Units 17:40 06:05 Total Bilirubin 2.0 H 1.8 H (0.0-1.0) mg/dL AST 205 H 168 H (5-37) U/L ALT 372 H 306 H (0-40) U/L Alkaline Phosphatase 633 H 490 H (39-117) U/L Albumin 3.9 3.2 L (3.5-5.0) g/dL Urine 03/14/25 Range/Units 16:57 Urine Color DK YELLOW Urine Appearance Clear Urine pH 5.5 (5.0-9.0) Ur Specific [place] >= 1.030 H (1.005-1.025) Urine Protein 30 (1+) H (Neg-Trace) mg/dL Urine Glucose (UA) 100 H (Negative) mg/dL Assessment and Plan (1) Acute cholecystitis: Status: Acute (2) Gallstone pancreatitis: Status: Acute (3) Choledocholithiasis: Status: Acute Plan 49 year old male admitted to [facility] [place] [facility]14/25 with epigastric/RUQ pain nausea and vomiting for the past two weeks. Pt is s/p sleeve gastrectomy at [facility] 5 yrs ago and has lost 100 lbs which likely pre-disposed to formation of gallstones. Labs showed elevated LFTs - repeat LFTs today show improvement with decrease in TB from 2 to 1.8. Imaging studies show cholelithiasis, cholecystitis and choledocholithiasis. Small stone in CBD which is likely to pass spontaneously RECOMMENDATIONS: 1. Agree with IV antiemetics and pain medications as needed. 2. Clear liquid diet today. 3. If FU LFTs cotinue to improve, pt can proceed with [place] with IOC 4. If LFTs remain elevated, pt will be scheduled for an ERCP on 03/18/25 if he remains stable. If he develops cholangitis and needs urgent ERCP, he will need to [place] [facility] [place] (Since no ERCP coverage is available this weekend) Procedures Date of Service Date of Service: 03/15/25
[2025-03-15 15:23] VITALS: BP 129/75; PULSE 63; RESP 16; TEMP 36.3; O2SAT 99
--- NOTE | 2025-03-15 15:44 | MHC.CM.PN ---
PT REPORTS HE LIVES WITH HIS S/O AND IS INDEPENDENT WITH CARE HE HAS NO DME AND NO SERVICES HE DECLINES A HCP HE REPORTS HE HAS NO PCP HE LOST HIS HEALTH INSURANCE SOME TIME AGO HE IS AWARE A REFERRAL WAS SENT TO [facility] TO ASSIST WITH INSURANCE DCP: HOME VIA PRIVATE TRANSPORT
[2025-03-15 19:30] VITALS: BP 131/80; PULSE 63; RESP 18; TEMP 37.1; O2SAT 97
[2025-03-16 04:00] VITALS: BP 98/56; PULSE 65; RESP 17; TEMP 36.4; O2SAT 98
[2025-03-16 08:00] VITALS: BP 117/66; PULSE 70; RESP 16; TEMP 36.8; O2SAT 98
--- NOTE | 2025-03-16 08:47 | P.PNGS_ITS ---
Subjective Subjective Date of Service: 03/16/25 Interval history: Patient tolerated clear liquids yesterday without increased abdominal pain. Physical Exam 2 Vital Signs: Vital Signs: Last Vital Signs Temp 98.3 F 03/16/25 08:00 Pulse 70 03/16/25 08:00 Resp 16 03/16/25 08:00 BP 117/66 03/16/25 08:00 Pulse Ox 98 03/16/25 08:00 O2 Del Method Room Air 03/16/25 08:00 BMI result Body Mass Index 33.0 Const: General: no acute distress Nutritional Appearance: well nourished Orientation/consciousness: patient oriented x3 Resp: Effort & Inspection: normal respiratory effort GI: Inspection: Yes normal to inspection Palpation (GI): Soft to palpation, nontender, no guarding and not rigid Neuro: General: patient oriented x3 Extrem: General: No calf tenderness and No edema Objective Data Active Medications Enoxaparin Sodium (Enoxaparin Sodium 40 Mg/0.4 Ml Syringe) 40 mg SUBCUT Q24H [facility] Stop: 03/17/25 00:00 Last Admin: 03/15/25 20:31 Dose: 40 mg Documented By: SASCHA Sodium Chloride (Ns) 1,000 mls @ 80 mls/hr IVCONT .[id number] [facility] Last Infusion: 03/16/25 08:23 Dose: 80 mls/hr Documented By: EDWARD Piperacillin Sod/Tazobactam (Sod 3.375 gm/ Sodium Chloride) 50 mls @ 100 mls/hr IV RQ6H [facility] Last Infusion: 03/16/25 07:11 Dose: Infused Documented By: EDWARD Morphine Sulfate (Morphine Sulfate 4 Mg/Ml Cartridge) 4 mg IVPUSH Q4H PRN; Protocol PRN Reason: Pain, Severe (Pain Scale 7-10) Last Admin: 03/15/25 23:40 Dose: 4 mg Documented By: SASCHA Sodium Chloride (0.9 % Sodium Chloride Flush 3 Ml Syringe) 3 ml IVFLUSH QSHIFT [facility] Last Admin: 03/16/25 07:27 Dose: Not Given Documented By: EDWARD Non-Admin Reason: IV Running Labs 03/15/25 06:05 03/15/25 06:05 Microbiology Microbiology Results: Microbiology 03/14/25 18:26 Blood Culture - Preliminary Blood - Venous No growth after 24 hours. 03/14/25 18:26 Blood Culture - Preliminary Blood - Venous No growth after 24 hours. 03/14/25 Unknown Urine Culture - Preliminary Urine clean catch - Clean Catch Midstream No growth to date. Procedures Date of Service Date of Service: 03/16/25 Progress Note: A&P Assessment and plan (1) Acute cholecystitis: Status: Acute (2) Gallstone pancreatitis: Status: Acute (3) Choledocholithiasis: Status: Acute Plan 49-year-old male patient admitted with abdominal pain in the epigastrium and right upper quadrant found to have evidence of gallstone pancreatitis, cholecystitis, choledocholithiasis. MRCP confirmed common bile duct stone. This morning he feels improved and was able to tolerate clear liquids. LFTs and CBC requested for this morning. Appreciate Dr. Marie's input. Possibly ERCP on Tuesday versus lap heidi with IOC Time Spent With Patient Time: Total time managing care of this patient today ____ minutes. Quality Stroke Does the patient have a stroke diagnosis?: No VTE Prior VTE?: No VTE Risk Level:: Surgical - low VTE Device Contraindication: N/A - Device Ordered VTE Drug Contraindication: N/A - Med Ordered
[2025-03-16 15:20] VITALS: BP 128/60; PULSE 80; RESP 20; TEMP 36.4; O2SAT 97
[2025-03-16] MEDS: oxyCODONE HCl Immed Release 5 MG TABLET PO ×2 (15:33→21:38)
[2025-03-16] MEDS: Dextrose 5 % and Lactated Ring 1,000 ML 125 ML IVCONT (15:52)
--- NOTE | 2025-03-16 16:14 | PC.NURSE ---
Pt complaining of increased pain and nausea with no relief after an hour and a half of PRN morphine. Pt hunched over in pain, unable to tolerate laying down or sitting up. VSS T 97.6, P 80, R 20 BP 128/60 O2 [address] Bell made aware.
[2025-03-16 18:57] VITALS: BP 122/70; PULSE 80; RESP 17; TEMP 36.8; O2SAT 97
[2025-03-17] MEDS: Dextrose 5 % and Lactated Ring 1,000 ML 125 ML IVCONT ×3 (02:55→18:00)
[2025-03-17 03:28] VITALS: BP 97/53; PULSE 70; RESP 17; TEMP 36.3; O2SAT 97
[2025-03-17 06:13] LABS: MANUAL DIFF FLAG NO
[2025-03-17 06:34] LABS: Hematocrit 33.7 % (42.0-52.0); Hemoglobin 11.1 g/dl (14.0-18.0); Imm Gran Abs Auto 0.05 X10*3/uL (0.00-0.03); Imm Gran Pct Auto 0.5 % (0.0-0.4); Lymphocytes Absolute Auto 1.3 X10*3/uL (1.2-4.9); Mean Corpuscular HGB Conc 32.9 g/dl (31.0-36.0); Mean Corpuscular Hemoglobin 29.4 pg (27.0-33.0); Mean Corpuscular Volume 89.4 fL (80.0-98.0); NRBC Abs Auto 0.000 X10*3/uL (0.0-0.012); NRBC Pct Auto 0.0 /100WBC (0.0-0.2); Platelet Count 310 X10*3/uL (160-400); Red Blood Count 3.77 X10*6/uL (4.60-5.80); White Blood Count 10.3 X10*3/uL (4.8-10.8)
[2025-03-17 06:38] LABS: Alanine Aminotransferase 263 U/L (0-40); Albumin Level 3.1 g/dL (3.5-5.0); Alkaline Phosphatase 618 U/L (39-117); Aspartate Amino Transferase 154 U/L (5-37); Total Protein 5.9 g/dL (6.5-8.0)
[2025-03-17 06:46] LABS: Lipase 421 U/L (8-78)
[2025-03-17 07:24] VITALS: BP 104/58; PULSE 62; RESP 18; TEMP 36.9; O2SAT 97
--- NOTE | 2025-03-17 09:06 | P.PNGS_ITS ---
Subjective Subjective Date of Service: 03/17/25 Interval history: Patient reports episode of increased pain yesterday at around 2 p.m. worse than his previous episode of pain. This lasted until approximately 22:00 when the pain did resolve. He currently denies any severe abdominal pain, nausea or vomiting. Physical Exam 2 Vital Signs: Vital Signs: Last Vital Signs Temp 98.4 F 03/17/25 07:24 Pulse 62 03/17/25 07:24 Resp 18 03/17/25 07:24 BP 104/58 L 03/17/25 07:24 Pulse Ox 97 03/17/25 07:24 O2 Del Method Room Air 03/17/25 07:24 BMI result Body Mass Index 33.0 Const: General: no acute distress Nutritional Appearance: well nourished Orientation/consciousness: patient oriented x3 Resp: Effort & Inspection: normal respiratory effort GI: Inspection: Yes normal to inspection Palpation (GI): Soft to palpation, nontender, no guarding and not rigid Neuro: General: patient oriented x3 Extrem: General: No calf tenderness and No edema Objective Data Active Medications Hydromorphone HCl (Hydromorphone Hcl 0.5 Mg/0.5 Ml Syringe) 0.5 mg IVPUSH Q3H PRN; Protocol PRN Reason: Pain, Severe (Pain Scale 7-10) Last Admin: 03/16/25 22:29 Dose: 0.5 mg Documented By: SASCHA Piperacillin Sod/Tazobactam (Sod 3.375 gm/ Sodium Chloride) 50 mls @ 100 mls/hr IV RQ6H [facility] Last Infusion: 03/17/25 06:13 Dose: Infused Documented By: SASCHA Dextrose/Lactated Ringer's (D5lr) 1,000 mls @ 125 mls/hr IVCONT .Q8H [facility] Last Admin: 03/17/25 02:55 Dose: 125 mls/hr Documented By: SASCHA Ondansetron HCl (Ondansetron Hcl 4 Mg/2 Ml Vial) 4 mg IVPUSH QID PRN PRN Reason: Nausea Last Admin: 03/16/25 15:33 Dose: 4 mg Documented By: EDWARD Oxycodone HCl (Oxycodone Hcl Immed Release 5 Mg Tablet) 5 mg PO Q6H PRN PRN Reason: Pain, Moderate(Pain Scale 4-6) Last Admin: 03/16/25 21:38 Dose: 5 mg Documented By: SASCHA Sodium Chloride (0.9 % Sodium Chloride Flush 3 Ml Syringe) 3 ml IVFLUSH QSHIFT [facility] Last Admin: 03/17/25 07:03 Dose: Not Given Documented By: EDWARD Non-Admin Reason: IV Running Labs 03/17/25 05:57 03/15/25 06:05 Labs: Laboratory Results - last 24 hr 03/17/25 05:57 MCV 89.4 MCH 29.4 MCHC 32.9 RDW 14.4 Plt Count 310 MPV 10.1 Immature Gran % (Auto) 0.5 H Neut % (Auto) 75.1 H Lymph % (Auto) 13.[address] [place] % (Auto) 10.5 Eos % (Auto) 0.7 Baso % (Auto) 0.2 Lymph # (Auto) 1.3 [place] # (Auto) 1.1 Eos # (Auto) 0.1 Baso # (Auto) 0.0 Abs Immat Gran (auto) 0.05 H Absolute Neuts (auto) 7.7 Absolute Nucleated RBC 0.000 Nucleated RBC % (auto) 0.0 Total Bilirubin 3.1 H Direct Bilirubin 2.4 H AST 154 H ALT 263 H Alkaline Phosphatase 618 H Total Protein 5.9 L Albumin 3.1 L Lipase 421 H Microbiology Microbiology Results: Microbiology 03/14/25 18:26 Blood Culture - Preliminary Blood - Venous No growth after 48 hours. 03/14/25 18:26 Blood Culture - Preliminary Blood - Venous No growth after 48 hours. 03/14/25 Unknown Urine Culture - Final Urine clean catch - Clean Catch Midstream No growth. Procedures Date of Service Date of Service: 03/17/25 Progress Note: A&P Assessment and plan (1) Choledocholithiasis: Status: Acute (2) Acute cholecystitis: Status: Acute (3) Transaminitis: Status: Acute Plan Patient with a recurrent episode of increased abdominal pain last evening suggestive of another passed stone. This morning his pain is improved however LFTs are higher especially the total and direct bilirubin suggestive of a common bile duct stone. MRCP positive for choledocholithiasis. Patient is tentatively scheduled for ERCP for tomorrow with cholecystectomy during this admission. Patient expressed understanding and agrees with the plan. Time Spent With Patient Time: Total time managing care of this patient today ____ minutes. Quality Stroke Does the patient have a stroke diagnosis?: No VTE Prior VTE?: No VTE Risk Level:: Surgical - low VTE Device Contraindication: N/A - Device Ordered VTE Drug Contraindication: N/A - Med Ordered
[2025-03-17 15:25] VITALS: BP 117/55; PULSE 73; RESP 16; TEMP 36.8; O2SAT 98
[2025-03-17 20:00] VITALS: BP 126/67; PULSE 71; RESP 18; TEMP 37.1; O2SAT 97
[2025-03-18] VITALS (8 sets, daily range): BP systolic 103–134; BP diastolic 61–79; PULSE 59–87; RESP 15–18; TEMP 36.4–37.2; O2SAT 96–99
[2025-03-18] MEDS: Dextrose 5 % and Lactated Ring 1,000 ML 125 ML IVCONT ×3 (01:57→20:15)
[2025-03-18 07:30] LABS: Alanine Aminotransferase 215 U/L (0-40); Albumin Level 3.0 g/dL (3.5-5.0); Alkaline Phosphatase 538 U/L (39-117); Aspartate Amino Transferase 123 U/L (5-37); Total Protein 5.9 g/dL (6.5-8.0)
--- NOTE | 2025-03-18 07:42 | P.PNGS_ITS ---
Subjective Subjective Date of Service: 03/18/25 Interval history: Patient feels improved today with no abdominal pain. He is awaiting ERCP today for the CBD stones Physical Exam 2 Vital Signs: Vital Signs: Last Vital Signs Temp 97.8 F 03/18/25 03:47 Pulse 59 03/18/25 03:47 Resp 16 03/18/25 03:47 BP 103/61 03/18/25 03:47 Pulse Ox 97 03/18/25 03:47 O2 Del Method Room Air 03/18/25 03:47 BMI result Body Mass Index 33.0 Const: General: no acute distress Nutritional Appearance: well nourished Orientation/consciousness: patient oriented x3 Resp: Effort & Inspection: normal respiratory effort GI: Inspection: Yes normal to inspection Palpation (GI): Soft to palpation, nontender, no guarding and not rigid Neuro: General: patient oriented x3 Extrem: General: No calf tenderness and No edema Objective Data Active Medications Hydromorphone HCl (Hydromorphone Hcl 0.5 Mg/0.5 Ml Syringe) 0.5 mg IVPUSH Q3H PRN; Protocol PRN Reason: Pain, Severe (Pain Scale 7-10) Last Admin: 03/17/25 23:49 Dose: 0.5 mg Documented By: SASCHA Piperacillin Sod/Tazobactam (Sod 3.375 gm/ Sodium Chloride) 50 mls @ 100 mls/hr IV RQ6H [facility] Last Infusion: 03/18/25 06:27 Dose: Infused Documented By: SASCHA Dextrose/Lactated Ringer's (D5lr) 1,000 mls @ 125 mls/hr IVCONT .Q8H [facility] Last Admin: 03/18/25 01:57 Dose: 125 mls/hr Documented By: SASCHA Ondansetron HCl (Ondansetron Hcl 4 Mg/2 Ml Vial) 4 mg IVPUSH QID PRN PRN Reason: Nausea Last Admin: 03/16/25 15:33 Dose: 4 mg Documented By: EDWARD Oxycodone HCl (Oxycodone Hcl Immed Release 5 Mg Tablet) 5 mg PO Q6H PRN PRN Reason: Pain, Moderate(Pain Scale 4-6) Last Admin: 03/16/25 21:38 Dose: 5 mg Documented By: SASCHA Sodium Chloride (0.9 % Sodium Chloride Flush 3 Ml Syringe) 3 ml IVFLUSH QSHIFT [facility] Last Admin: 03/18/25 00:14 Dose: Not Given Documented By: SASCHA Non-Admin Reason: IV Running Labs 03/17/25 05:57 03/15/25 06:05 Labs: Laboratory Results - last 24 hr 03/18/25 06:51 Hold Purple Top SEE NOTE Total Bilirubin 2.6 H Direct Bilirubin 1.9 H AST 123 H ALT 215 H Alkaline Phosphatase 538 H Total Protein 5.9 L Albumin 3.0 L Procedures Date of Service Date of Service: 03/18/25 Progress Note: A&P Assessment and plan (1) Transaminitis: Status: Acute (2) Choledocholithiasis: Status: Acute (3) Acute cholecystitis: Status: Acute Plan Patient with a recurrent episode of increased abdominal pain last evening suggestive of another passed stone. This morning his pain is improved however LFTs remain elevated; the total and direct bilirubin suggestive of a common bile duct stone. MRCP positive for choledocholithiasis. Patient is scheduled for ERCP for today with cholecystectomy during this admission. Patient expressed understanding and agrees with the plan. Time Spent With Patient Time: Total time managing care of this patient today ____ minutes. Quality Stroke Does the patient have a stroke diagnosis?: No VTE Prior VTE?: No VTE Risk Level:: Surgical - low VTE Device Contraindication: N/A - Device Ordered VTE Drug Contraindication: N/A - Med Ordered
--- NOTE | 2025-03-18 14:59 | MHC.CM.PN ---
EMR REVIEWED. PT IS NOT YET MEDICALLY CLEARED FOR DC (ECRP TODAY) CM WILL CONTINUE TO FOLLOW FOR ANY CHANGE TO DC PLAN.
--- NOTE | 2025-03-18 16:29 | P.PNGI_ITS ---
Subjective Subjective Date of Service: 03/18/25 Interval History: no abdominal pain today no fever no chills mild jaundice Critical Care Time (minutes): 0 Physical Exam 2 Vital Signs: Vital Signs: Last Vital Signs Temp 98.2 F 03/18/25 14:17 Pulse 73 03/18/25 14:17 Resp 15 03/18/25 14:17 BP 130/79 03/18/25 14:17 Pulse Ox 99 03/18/25 14:17 O2 Del Method Room Air 03/18/25 14:17 BMI result Body Mass Index 33.0 EXAM: GENERAL: The patient is well developed and nontoxic. VITAL SIGNS:see workflow HEENT: mildly icteric sclerae, PERRLA, EOMI. Oropharynx clear. Moist mucous membranes. Conjunctivae appear well perfused. No thyroid mass. CHEST: Chest wall is nontender. HEART: Regular rate and rhythm without murmurs. LUNGS: Clear to auscultation bilaterally. ABDOMEN: Soft, positive bowel sounds, nontender, no organomegaly.no flank tenderness SKIN: No rash, no excessive bruising, petechiae, or purpura. NEUROLOGIC: Cranial nerves II-XII intact without motor/sensory deficit. Psych: normal affect Objective Data Labs 03/17/25 05:57 03/15/25 06:05 Labs: Laboratory Results - last 24 hr 03/18/25 06:51 Hold Purple Top SEE NOTE Total Bilirubin 2.6 H Direct Bilirubin 1.9 H AST 123 H ALT 215 H Alkaline Phosphatase 538 H Total Protein 5.9 L Albumin 3.0 L Microbiology Microbiology Results: Microbiology 03/14/25 18:26 Blood - Venous Blood Culture - Preliminary No growth after 48 hours. 03/14/25 18:26 Blood - Venous Blood Culture - Preliminary No growth after 48 hours. 03/14/25 Unknown Urine clean catch - Clean Catch Midstream Urine Culture - Final No growth. Procedures Date of Service Date of Service: 03/18/25 Progress Note: A&P Assessment and plan (1) Choledocholithiasis: Status: Acute Plan 1/ CBD stones, elevated LFT PLAN: 1/ ERCP today, keep NPO. GA indomethcin before hand Time Spent With Patient Time: Total time managing care of this patient today ____ minutes. Quality Stroke Does the patient have a stroke diagnosis?: No VTE Prior VTE?: No VTE Risk Level:: Surgical - low VTE Device Contraindication: N/A - Device Ordered VTE Drug Contraindication: N/A - Med Ordered
--- NOTE | 2025-03-18 17:56 | P.CONAN_ITS ---
HPI - Anesthesia Eval Consult details Narrative: Choleliothiasis PMFSH Active Problems Active Problems: All Active Problems Choledocholithiasis (Acute) Gallstone pancreatitis (Acute) Transaminitis (Acute) Acute cholecystitis (Acute) Family History Family history of problems with anesthesia: No Surgical History Surgical History (Updated 03/18/25 @ 14:14 by Katie Tavares RN) Hx of gastric bypass Hx of arthroscopy of right knee History of Problems with Anesthesia: No Social History Social History Household Members: Spouse Housing: Apartment Do you presently have visiting nurse or other home services: No Patient Tobacco Use Status: Never used Tobacco Smoked in Last 30 Days: No e-Cigarette/Vaping Use: Never Used Second Hand Smoke Exposure: No Use of substances other than those prescribed or required for medical reasons: No Currently Displaying Signs/Symptoms of Drug Intoxication Withdrawal: No Have you been hit, kicked, punched, or otherwise hurt by someone within the past year? If so, by whom?: No Do you feel safe in your current relationship?: Yes Is there a partner from a previous relationship who is making you feel unsafe now?: No Are you made to feel afraid or neglected: No Are you DNR?: No Advance Directives: No Advance Directives Information Provided: No Do you have a plan to hurt others: No Plan Recently lost weight without trying: No Eating poorly because of decreased appetite: No Nutrition Risks: No Nutritional Risk Poor oral hygiene: No service: No Meds Allergies Allergy/AdvReac Type Severity Reaction Status Date / Time No Known Allergies Allergy Verified 03/14/25 16:17 Active Medications: Current Medications Hydromorphone HCl (Hydromorphone Hcl 0.5 Mg/0.5 Ml Syringe) 0.5 mg IVPUSH Q3H PRN; Protocol PRN Reason: Pain, Severe (Pain Scale 7-10) Last Admin: 03/17/25 23:49 Dose: 0.5 mg Piperacillin Sod/Tazobactam (Sod 3.375 gm/ Sodium Chloride) 50 mls @ 100 mls/hr IV RQ6H [facility] Last Infusion: 03/18/25 13:12 Dose: Infused Dextrose/Lactated Ringer's (D5lr) 1,000 mls @ 125 mls/hr IVCONT .Q8H [facility] Last Admin: 03/18/25 13:12 Dose: 125 mls/hr Ondansetron HCl (Ondansetron Hcl 4 Mg/2 Ml Vial) 4 mg IVPUSH QID PRN PRN Reason: Nausea Last Admin: 03/16/25 15:33 Dose: 4 mg Oxycodone HCl (Oxycodone Hcl Immed Release 5 Mg Tablet) 5 mg PO Q6H PRN PRN Reason: Pain, Moderate(Pain Scale 4-6) Last Admin: 03/16/25 21:38 Dose: 5 mg Sodium Chloride (0.9 % Sodium Chloride Flush 3 Ml Syringe) 3 ml IVFLUSH QSHIFT [facility] Last Admin: 03/18/25 10:08 Dose: Not Given Home Medications ?Medication ?Instructions ?Recorded ?Confirmed ?Last Taken ?Type No Known Home Meds 03/14/25 03/14/25 Un known History Exam Height,Weight and Vital Signs: Height 5 ft 7 in Weight 95.6 kg Last Vital Signs Temp 98.2 F 03/18/25 14:17 Pulse 73 03/18/25 14:17 Resp 15 03/18/25 14:17 BP 130/79 03/18/25 14:17 Pulse Ox 99 03/18/25 14:17 O2 Del Method Room Air 03/18/25 14:17 Pertinent Lab Results Pertinent Lab Results: Laboratory Tests 03/14/25 03/14/25 03/14/25 16:57 17:40 18:26 WBC 10.2 RBC 4.67 Hgb 13.6 L Hct 42.0 MCV 89.9 MCH 29.1 MCHC 32.4 RDW 14.5 Plt Count 334 MPV 9.7 Immature Gran % (Auto) 0.5 H Neut % (Auto) 65.9 Lymph % (Auto) 20.9 [place] % (Auto) 10.0 Eos % (Auto) 2.3 Baso % (Auto) 0.4 Lymph # (Auto) 2.1 [place] # (Auto) 1.0 Eos # (Auto) 0.2 Baso # (Auto) 0.0 Abs Immat Gran (auto) 0.05 H Absolute Neuts (auto) 6.7 Absolute Nucleated RBC 0.000 Nucleated RBC % (auto) 0.0 Hold Purple Top PT 12.6 H INR 1.1 APTT 30.3 Sodium 140 Potassium 3.6 Chloride 102 Carbon Dioxide 28 Anion Gap 14 BUN 10 Creatinine 0.79 Estim Creat Clear Calc 122.8 Estimated GFR > 60 Random Glucose 164 H Lactic Acid 1.1 Calcium 9.4 Total Bilirubin 2.0 H Direct Bilirubin AST 205 H ALT 372 H Alkaline Phosphatase 633 H Troponin I High Sens < 2.7 B-Natriuretic Peptide 15 Total Protein 7.3 Albumin 3.9 Lipase 133 H Urine Color DK YELLOW Urine Appearance Clear Urine pH 5.5 Ur Specific [place] >= 1.030 H Urine Protein 30 (1+) H Urine Glucose (UA) 100 H Urine Ketones Trace Urine Blood Negative Urine Nitrite Positive H Ur Leukocyte Esterase Negative Urine RBC 0-2 Urine WBC 0-5 Ur Squamous Epith Cells 3-5 Urine Bacteria None Seen Hyaline Casts 0-2 Granular Casts Present 03/14/25 03/15/25 03/17/25 21:48 06:05 05:57 WBC 8.5 10.3 RBC 3.89 L 3.77 L Hgb 11.4 L 11.1 L Hct 35.1 L 33.7 L MCV 90.2 89.4 MCH 29.3 29.4 MCHC 32.5 32.9 RDW 14.6 14.4 Plt Count 310 310 MPV 10.2 10.1 Immature Gran % (Auto) 0.5 H 0.5 H Neut % (Auto) 64.8 75.1 H Lymph % (Auto) 19.4 L 13.0 L [place] % (Auto) 11.2 H 10.5 Eos % (Auto) 3.4 0.7 Baso % (Auto) 0.7 0.2 Lymph # (Auto) 1.6 1.3 [place] # (Auto) 1.0 1.1 Eos # (Auto) 0.3 0.1 Baso # (Auto) 0.1 0.0 Abs Immat Gran (auto) 0.04 H 0.05 H Absolute Neuts (auto) 5.5 7.7 Absolute Nucleated RBC 0.000 0.000 Nucleated RBC % (auto) 0.0 0.0 Hold Purple Top PT INR APTT Sodium 142 Potassium 4.1 Chloride 108 Carbon Dioxide 27 Anion Gap 11 L BUN 9 Creatinine 0.77 Estim Creat Clear Calc 126.4 Estimated GFR > 60 Random Glucose 84 Lactic Acid Calcium 8.7 D Total Bilirubin 1.8 H 3.1 H Direct Bilirubin 2.4 H AST 168 H 154 H ALT 306 H 263 H Alkaline Phosphatase 490 H 618 H Troponin I High Sens B-Natriuretic Peptide Total Protein 6.1 L 5.9 L Albumin 3.2 L 3.1 L Lipase 131 H 421 H Urine Color Urine Appearance Urine pH Ur Specific [place] Urine Protein Urine Glucose (UA) Urine Ketones Urine Blood Urine Nitrite Ur Leukocyte Esterase Urine RBC Urine WBC Ur Squamous Epith Cells Urine Bacteria Hyaline Casts Granular Casts 03/18/25 06:51 WBC RBC Hgb Hct MCV MCH MCHC RDW Plt Count MPV Immature Gran % (Auto) Neut % (Auto) Lymph % (Auto) [place] % (Auto) Eos % (Auto) Baso % (Auto) Lymph # (Auto) [place] # (Auto) Eos # (Auto) Baso # (Auto) Abs Immat Gran (auto) Absolute Neuts (auto) Absolute Nucleated RBC Nucleated RBC % (auto) Hold Purple Top SEE NOTE PT INR APTT Sodium Potassium Chloride Carbon Dioxide Anion Gap BUN Creatinine Estim Creat Clear Calc Estimated GFR Random Glucose Lactic Acid Calcium Total Bilirubin 2.6 H Direct Bilirubin 1.9 H AST 123 H ALT 215 H Alkaline Phosphatase 538 H Troponin I High Sens B-Natriuretic Peptide Total Protein 5.9 L Albumin 3.0 L Lipase Urine Color Urine Appearance Urine pH Ur Specific [place] Urine Protein Urine Glucose (UA) Urine Ketones Urine Blood Urine Nitrite Ur Leukocyte Esterase Urine RBC Urine WBC Ur Squamous Epith Cells Urine Bacteria Hyaline Casts Granular Casts Airway Mallampati Class: II TM Dist: >3cm Neck ROM: Full Loose/Missing/Broken Teeth: No Heart: RRR Lungs: CTA Assessment and Plan Assessment Anesthesia Assessment: Anesthesia Plan Discussed and Chart Reviewed Final Anesthetic Review Family History of Problems with Anesthesia: No History of Problems with Anesthesia: No NPO: Yes ASA Class: I and Emergency Final Preanesthetic Review: No Changes in Pt Med Stat, Meds/Allgs Chart Reviewed, Consent Obtained/Reviewed and Anes Risks/Benef Reviewed Patient Risk: Low Procedure Risk: Low Anesthetic Plan Anesthetic Plan: GA Disposition: Standard PACU
--- NOTE | 2025-03-18 19:00 | W.PM.OPN ---
Operative Note Operative Note Date of Service: 03/18/25 Narrative: Description:?Endoscopic retrograde cholangiopancreatography (ERCP) PROCEDURE:?Endoscopic retrograde cholangiopancreatography with sphincterotomy, stone extraction, intraoperative cholangiogram and interpretation. INDICATION FOR THE PROCEDURE:?Patient with a history of choledocholithiasis on imaging. MEDICATIONS:?General anesthesia. The risks of the procedure were made aware to the patient and consisted of medication reaction, bleeding, perforation, aspiration, and post ERCP pancreatitis. DESCRIPTION OF PROCEDURE:?After informed consent and appropriate sedation, the duodenoscope was inserted into the oropharynx, down the esophagus, and into the stomach. The scope was then advanced through the pylorus to the ampulla. The CBD was selectively cannulated with wire guided approach and a cholangiogram was obtained. The cholangiogram was formally interpreted and documented, and confirmed placement with filling defect noted in mid CBD with a dilated duct to about 10 mm. A sphincterotomy was performed to facilitate stone removal, ductal clearance and enlarge the orifice beyond standard cannulation. After this a extraction balloon was used to extract stone debris material with removal of an oblong shaped greenish yellow stone about 10-12 mm in diameter. Completion balloon occluded cholangiography demonstrated no filling defects. The procedure was then terminated. Intraop cholangiogram reivew and interpretation by performing physician: Dilated CBD with filling defect in mid CBD consistent with choledocholithiasis. CBD measured about 10 mm. No stricture or leak seen. FINDINGS: 1. choledocholithiasis RECOMMENDATIONS: 1. clears and then NPO from midnight in case of cholecystectomy tomorrow
[2025-03-18] MEDS: 0.9 % Sodium Chloride Flush 3 ML SYRINGE IVFLUSH ×2 (20:15→20:23)
[2025-03-19] VITALS (8 sets, daily range): BP systolic 101–132; BP diastolic 56–76; PULSE 52–71; RESP 13–20; TEMP 36.3–36.7; O2SAT 94–100
[2025-03-19] MEDS: Dextrose 5 % and Lactated Ring 1,000 ML 125 ML IVCONT ×3 (04:15→23:20)
--- NOTE | 2025-03-19 06:28 | PM.PNGS ---
Subjective Subjective Date of Service: 03/19/25 <Haider Beyer - Last Filed: 03/19/25 08:00> 03/19/25 <Abraham Denson PA-C - Last Filed: 03/19/25 08:49> Interval history: Patient underwent ERCP yesterday evening and was found to have a dilated CBD with filling defect in mid CBD consistent with choledocholithiasis. CBD measured about 10 mm. A 10-12mm stone and stone debris material were removed. Patient tolerated the procedure well. He reports 2/10 pain in the RUQ on hydromorphone. He denies fever, chills, nausea, vomiting. No bowel movements but passed gas this morning. Ambulating to the toilet without difficulty. <Haider Beyer - Last Filed: 03/19/25 08:00> Physical Exam Vital Signs: Vital Signs: Last Vital Signs Temp 97.5 F 03/19/25 03:36 Pulse 52 03/19/25 03:36 Resp 18 03/19/25 03:36 BP 111/64 03/19/25 03:36 Pulse Ox 98 03/19/25 03:36 O2 Del Method Room Air 03/19/25 03:36 O2 Flow Rate 6 03/18/25 19:09 BMI result Body Mass Index 33.0 <Haider Beyer - Last Filed: 03/19/25 08:00> GI: Inspection: Yes normal to inspection <Haider Beyer - Last Filed: 03/19/25 08:00> Palpation (GI): Soft to palpation, nontender and no guarding <Haider Beyer - Last Filed: 03/19/25 08:00> Objective Data Active Medications Hydromorphone HCl (Hydromorphone Hcl 0.5 Mg/0.5 Ml Syringe) 0.5 mg IVPUSH Q3H PRN; Protocol PRN Reason: Pain, Severe (Pain Scale 7-10) Last Admin: 03/19/25 03:33 Dose: 0.5 mg Documented By: EFFIE Piperacillin Sod/Tazobactam (Sod 3.375 gm/ Sodium Chloride) 50 mls @ 100 mls/hr IV RQ6H [facility] Last Infusion: 03/19/25 05:20 Dose: Infused Documented By: VERONICA Dextrose/Lactated Ringer's (D5lr) 1,000 mls @ 125 mls/hr IVCONT .Q8H [facility] Last Admin: 03/19/25 04:15 Dose: 125 mls/hr Documented By: VERONICA Naloxone HCl (Naloxone Hcl 0.4 Mg/Ml Vial) 0.04 mg IVPUSH Q5M PRN PRN Reason: Excessive sedation or RR < 8 Ondansetron HCl (Ondansetron Hcl 4 Mg/2 Ml Vial) 4 mg IVPUSH QID PRN PRN Reason: Nausea Last Admin: 03/16/25 15:33 Dose: 4 mg Documented By: EDWARD Oxycodone HCl (Oxycodone Hcl Immed Release 5 Mg Tablet) 5 mg PO Q6H PRN PRN Reason: Pain, Moderate(Pain Scale 4-6) Last Admin: 03/16/25 21:38 Dose: 5 mg Documented By: SASCHA Sodium Chloride (0.9 % Sodium Chloride Flush 3 Ml Syringe) 3 ml IVFLUSH QSHIFT [facility] Last Admin: 03/18/25 20:23 Dose: 3 ml Documented By: VERONICA <Haider Beyer - Last Filed: 03/19/25 08:00> Labs CBC & Chem 7: 03/17/25 05:57 03/15/25 06:05 <Haider Beyer - Last Filed: 03/19/25 08:00> Labs: Laboratory Results - last 24 hr 03/18/25 06:51 Hold Purple Top SEE NOTE Total Bilirubin 2.6 H Direct Bilirubin 1.9 H AST 123 H ALT 215 H Alkaline Phosphatase 538 H Total Protein 5.9 L Albumin 3.0 L <Haider Beyer - Last Filed: 03/19/25 08:00> Procedures Date of Service Date of Service: 03/19/25 <Haider Beyer - Last Filed: 03/19/25 08:00> 03/19/25 <Abraham Denson PA-C - Last Filed: 03/19/25 08:49> Progress Note: A&P Assessment and plan (1) Acute cholecystitis: Status: Acute <Haider Beyer - Last Filed: 03/19/25 08:00> (2) Choledocholithiasis: Status: Acute <Haider Beyer - Last Filed: 03/19/25 08:00> (3) Gallstone pancreatitis: Status: Acute <Haider Altamirano Last Filed: 03/19/25 08:00> Assessment and Plan: No morning labs yet. Will recheck LFTs. Continue NPO. Plan for surgery this afternoon if labs permitting. <Haider Altamirano Filed: 03/19/25 08:00> No morning labs yet. Will recheck LFTs. Continue NPO. Plan for surgery this afternoon if labs permitting. Patient Overall doing well, pain is well controlled. Denies nausea or vomiting. Patient has CBD stone removed yesterday with ERCP. he would like to proceed with laparosocpic cholecystectomy possible open this afternoon. Discussed risks with patient, he understands risking includ bleeding, infection, damage to surroudning organs. he has been NPO. <Abraham Denson PA-C - Last Filed: 03/19/25 08:49> Time Spent With Patient Time: Total time managing care of this patient today ____ minutes. <Haider Altamirano Last Filed: 03/19/25 08:00> Quality Stroke Does the patient have a stroke diagnosis?: No <Hadier Altamirano Filed: 03/19/25 08:00> VTE Prior VTE?: No <Haider Altamirano Last Filed: 03/19/25 08:00> VTE Risk Level:: Surgical - low <Haider Altamirano Filed: 03/19/25 08:00> VTE Device Contraindication: N/A - Device Ordered <Haider Altamirano Filed: 03/19/25 08:00> VTE Drug Contraindication: N/A - Med Ordered <Haider Altamirano Filed: 03/19/25 08:00>
--- NOTE | 2025-03-19 06:42 | P.PNGS_ITS ---
Subjective Subjective Date of Service: 03/19/25 Interval history: Had ERCP yesterday, had common bile duct stone removed. Was made NPO for possible cholecystectomy today. Physical Exam 2 Vital Signs: Vital Signs: Last Vital Signs Temp 97.5 F 03/19/25 03:36 Pulse 52 03/19/25 03:36 Resp 18 03/19/25 03:36 BP 111/64 03/19/25 03:36 Pulse Ox 98 03/19/25 03:36 O2 Del Method Room Air 03/19/25 03:36 O2 Flow Rate 6 03/18/25 19:09 BMI result Body Mass Index 33.0 Objective Data Active Medications Hydromorphone HCl (Hydromorphone Hcl 0.5 Mg/0.5 Ml Syringe) 0.5 mg IVPUSH Q3H PRN; Protocol PRN Reason: Pain, Severe (Pain Scale 7-10) Last Admin: 03/19/25 03:33 Dose: 0.5 mg Documented By: EFFIE Piperacillin Sod/Tazobactam (Sod 3.375 gm/ Sodium Chloride) 50 mls @ 100 mls/hr IV RQ6H [facility] Last Infusion: 03/19/25 05:20 Dose: Infused Documented By: VERONICA Dextrose/Lactated Ringer's (D5lr) 1,000 mls @ 125 mls/hr IVCONT .Q8H [facility] Last Admin: 03/19/25 04:15 Dose: 125 mls/hr Documented By: VERONICA Naloxone HCl (Naloxone Hcl 0.4 Mg/Ml Vial) 0.04 mg IVPUSH Q5M PRN PRN Reason: Excessive sedation or RR < 8 Ondansetron HCl (Ondansetron Hcl 4 Mg/2 Ml Vial) 4 mg IVPUSH QID PRN PRN Reason: Nausea Last Admin: 03/16/25 15:33 Dose: 4 mg Documented By: EDWARD Oxycodone HCl (Oxycodone Hcl Immed Release 5 Mg Tablet) 5 mg PO Q6H PRN PRN Reason: Pain, Moderate(Pain Scale 4-6) Last Admin: 03/16/25 21:38 Dose: 5 mg Documented By: SASCHA Sodium Chloride (0.9 % Sodium Chloride Flush 3 Ml Syringe) 3 ml IVFLUSH QSHIFT [facility] Last Admin: 03/18/25 20:23 Dose: 3 ml Documented By: VERONICA Labs 03/17/25 05:57 03/15/25 06:05 Labs: Laboratory Results - last 24 hr 03/18/25 06:51 Hold Purple Top SEE NOTE Total Bilirubin 2.6 H Direct Bilirubin 1.9 H AST 123 H ALT 215 H Alkaline Phosphatase 538 H Total Protein 5.9 L Albumin 3.0 L Procedures Date of Service Date of Service: 03/19/25 Progress Note: A&P Time Spent With Patient Time: Total time managing care of this patient today ____ minutes. Quality Stroke Does the patient have a stroke diagnosis?: No VTE Prior VTE?: No VTE Risk Level:: Surgical - low VTE Device Contraindication: N/A - Device Ordered VTE Drug Contraindication: N/A - Med Ordered
--- NOTE | 2025-03-19 08:11 | PM.PNGS ---
Subjective Subjective Date of Service: 03/19/25 Interval history: No new complaints, tolerated the procedure well yesterday. Ready for surgery today. Physical Exam Vital Signs: Vital Signs: Last Vital Signs Temp 97.8 F 03/19/25 07:09 Pulse 71 03/19/25 07:09 Resp 14 03/19/25 07:09 BP 104/61 03/19/25 07:09 Pulse Ox 94 03/19/25 07:09 O2 Del Method Room Air 03/19/25 07:09 O2 Flow Rate 6 03/18/25 19:09 BMI result Body Mass Index 33.0 Const: General: no acute distress Nutritional Appearance: well nourished Orientation/consciousness: patient oriented x3 Limitations: no limitations Resp: Effort & Inspection: normal respiratory effort GI: Inspection: Yes normal to inspection Palpation (GI): Soft to palpation, nontender, no guarding and No hepatosplenomegaly present Percussion: Yes normal to percussion Neuro: General: patient oriented x3 Extrem: General: Yes normal to inspection Objective Data Active Medications Hydromorphone HCl (Hydromorphone Hcl 0.5 Mg/0.5 Ml Syringe) 0.5 mg IVPUSH Q3H PRN; Protocol PRN Reason: Pain, Severe (Pain Scale 7-10) Last Admin: 03/19/25 03:33 Dose: 0.5 mg Documented By: EFFIE Piperacillin Sod/Tazobactam (Sod 3.375 gm/ Sodium Chloride) 50 mls @ 100 mls/hr IV RQ6H [facility] Last Infusion: 03/19/25 05:20 Dose: Infused Documented By: VERONICA Dextrose/Lactated Ringer's (D5lr) 1,000 mls @ 125 mls/hr IVCONT .Q8H [facility] Last Admin: 03/19/25 04:15 Dose: 125 mls/hr Documented By: VERONICA Naloxone HCl (Naloxone Hcl 0.4 Mg/Ml Vial) 0.04 mg IVPUSH Q5M PRN PRN Reason: Excessive sedation or RR < 8 Ondansetron HCl (Ondansetron Hcl 4 Mg/2 Ml Vial) 4 mg IVPUSH QID PRN PRN Reason: Nausea Last Admin: 03/16/25 15:33 Dose: 4 mg Documented By: EDWARD Oxycodone HCl (Oxycodone Hcl Immed Release 5 Mg Tablet) 5 mg PO Q6H PRN PRN Reason: Pain, Moderate(Pain Scale 4-6) Last Admin: 03/16/25 21:38 Dose: 5 mg Documented By: SASCHA Sodium Chloride (0.9 % Sodium Chloride Flush 3 Ml Syringe) 3 ml IVFLUSH QSHIFT [facility] Last Admin: 03/18/25 20:23 Dose: 3 ml Documented By: VERONICA Labs 03/17/25 05:57 03/15/25 06:05 Procedures Date of Service Date of Service: 03/19/25 Progress Note: A&P Assessment and plan (1) Choledocholithiasis: Status: Acute (2) Acute cholecystitis: Status: Acute Plan 49-year-old male patient presenting with complaints of epigastric and right upper quadrant abdominal pain found to have cholecystitis, cholelithiasis, choledocholithiasis, now status post ERCP with sphincterotomy and removal of common bile duct stone. He tolerated this procedure well and is ready for proceeding to laparoscopic or possible open cholecystectomy. I reviewed the procedure, risks, and alternatives in detail and he consents to a laparoscopic or possible open cholecystectomy. He has been added onto the operative schedule for today. Time Spent With Patient Time: Total time managing care of this patient today ____ minutes. Quality Stroke Does the patient have a stroke diagnosis?: No VTE Prior VTE?: No VTE Risk Level:: Surgical - low VTE Device Contraindication: N/A - Device Ordered VTE Drug Contraindication: N/A - Med Ordered
--- NOTE | 2025-03-19 08:13 | MHC.SHP ---
Pre-Procedural Eval Section A - 24 Hr Update-Section A only Date of Service: 03/19/25 The patient is an INPATIENT: Yes Changes since office visit: Yes Patient answered all questions; No Cold of Flu in the past 2 weeks, No New Medical Problems and No Changes in Medication The patient has been examined within 24 hours of the surgical procedure. The History & Physical has been completed within 30 days and I have reviewed it.: Yes Section B - Complete if H&P > 30 days Chief Complaint: abdo pain Allergies: Allergies Allergy/AdvReac Type Severity Reaction Status Date / Time No Known Allergies Allergy Verified 03/14/25 16:17 Plan Diagnosis/Plan: Unchanged I have reviewed the history and physical and performed a pertinent physical examination on my patient. No changes have occurred unless specified. Time Spent With Patient Time: Total time managing care of this patient today ____ minutes.
--- NOTE | 2025-03-19 09:36 | HO.POSTANES ---
Post Anesthesia Evaluation Post Anesthesia Evaluation Date of Service: 03/19/25 Vital Signs: Vital Signs Temp Pulse Resp BP Pulse Ox O2 Del Method 03/19/25 07:09 97.8 F 71 14 104/61 94 Room Air 03/19/25 03:36 97.5 F 52 18 111/64 98 Room Air Anesthesia: General Mental Status: Awake Pain Control: Satisfactory Nausea/Vomiting: None Hydration: Adequate Anesthesia-Related Issues: No Anes. Related Issues
[2025-03-19] MEDS: oxyCODONE HCl Immed Release 5 MG TABLET PO (10:09)
--- NOTE | 2025-03-19 11:33 | P.PNGI_ITS ---
Subjective Subjective Date of Service: 03/19/25 Interval History: minimal pain no n/v feels relaxed, going for cholecystectomy today Critical Care Time (minutes): 0 Physical Exam 2 Vital Signs: Vital Signs: Last Vital Signs Temp 97.8 F 03/19/25 07:09 Pulse 71 03/19/25 07:09 Resp 14 03/19/25 07:09 BP 104/61 03/19/25 07:09 Pulse Ox 94 03/19/25 07:09 O2 Del Method Room Air 03/19/25 07:09 O2 Flow Rate 6 03/18/25 19:09 BMI result Body Mass Index 33.0 EXAM: GENERAL: The patient is well developed and nontoxic. VITAL SIGNS:see workflow HEENT: Nonicteric sclerae, PERRLA, EOMI. Oropharynx clear. Moist mucous membranes. Conjunctivae appear well perfused. No thyroid mass. CHEST: Chest wall is nontender. HEART: Regular rate and rhythm without murmurs. LUNGS: Clear to auscultation bilaterally. ABDOMEN: Soft, positive bowel sounds, nontender, no organomegaly.no flank tenderness SKIN: No rash, no excessive bruising, petechiae, or purpura. NEUROLOGIC: Cranial nerves II-XII intact without motor/sensory deficit. Psych: normal affect Objective Data Labs 03/17/25 05:57 03/15/25 06:05 Microbiology Microbiology Results: Microbiology 03/14/25 18:26 Blood - Venous Blood Culture - Preliminary No growth after 48 hours. 03/14/25 18:26 Blood - Venous Blood Culture - Preliminary No growth after 48 hours. 03/14/25 Unknown Urine clean catch - Clean Catch Midstream Urine Culture - Final No growth. Procedures Date of Service Date of Service: 03/19/25 Progress Note: A&P Assessment and plan (1) Choledocholithiasis: Status: Acute Plan 1/ Cholecystitis with choledocholithiasis s/p ERCP with stone extraction and sphincterotomy. no evidence of post ERCP pancreatitis PLAN: 1/ Agree with CCY today, Time Spent With Patient Time: Total time managing care of this patient today ____ minutes. Quality Stroke Does the patient have a stroke diagnosis?: No VTE Prior VTE?: No VTE Risk Level:: Surgical - low VTE Device Contraindication: N/A - Device Ordered VTE Drug Contraindication: N/A - Med Ordered
--- NOTE | 2025-03-19 12:23 | PC.NURSE ---
iv patent both
--- NOTE | 2025-03-19 14:08 | P.CONAN_ITS ---
HPI - Anesthesia Eval Consult details Narrative: curt gordon PMFSH Active Problems Active Problems: All Active Problems Choledocholithiasis (Acute) Gallstone pancreatitis (Acute) Transaminitis (Acute) Acute cholecystitis (Acute) Family History Family history of problems with anesthesia: No Surgical History Surgical History Hx of gastric bypass Hx of arthroscopy of right knee History of Problems with Anesthesia: No Social History Social History Household Members: Spouse Housing: Apartment Do you presently have visiting nurse or other home services: No Patient Tobacco Use Status: Never used Tobacco Smoked in Last 30 Days: No e-Cigarette/Vaping Use: Never Used Second Hand Smoke Exposure: No Use of substances other than those prescribed or required for medical reasons: No Currently Displaying Signs/Symptoms of Drug Intoxication Withdrawal: No Have you been hit, kicked, punched, or otherwise hurt by someone within the past year? If so, by whom?: No Do you feel safe in your current relationship?: Yes Is there a partner from a previous relationship who is making you feel unsafe now?: No Are you made to feel afraid or neglected: No Are you DNR?: No Advance Directives: No Advance Directives Information Provided: No Do you have a plan to hurt others: No Plan Recently lost weight without trying: No Eating poorly because of decreased appetite: No Nutrition Risks: No Nutritional Risk Poor oral hygiene: No service: No Meds Allergies Allergy/AdvReac Type Severity Reaction Status Date / Time No Known Allergies Allergy Verified 03/14/25 16:17 Active Medications: Current Medications Fentanyl (Fentanyl Citrate/Pf 100 Mcg/2 Ml Vial) 50 mcg IVPUSH Q5M PRN PRN Reason: Pain, Moderate to Severe (Pain Scale 4-10) Stop: 03/19/25 20:06 Hydromorphone HCl (Hydromorphone Hcl 0.5 Mg/0.5 Ml Syringe) 0.5 mg IVPUSH Q3H PRN; Protocol PRN Reason: Pain, Severe (Pain Scale 7-10) Last Admin: 03/19/25 03:33 Dose: 0.5 mg Piperacillin Sod/Tazobactam (Sod 3.375 gm/ Sodium Chloride) 50 mls @ 100 mls/hr IV RQ6H [facility] Last Admin: 03/19/25 11:25 Dose: 100 mls/hr Dextrose/Lactated Ringer's (D5lr) 1,000 mls @ 125 mls/hr IVCONT .Q8H [facility] Last Admin: 03/19/25 04:15 Dose: 125 mls/hr Naloxone HCl (Naloxone Hcl 0.4 Mg/Ml Vial) 0.04 mg IVPUSH Q5M PRN PRN Reason: Excessive sedation or RR < 8 Naloxone HCl (Naloxone Hcl 0.4 Mg/Ml Vial) 0.04 mg IVPUSH Q5M PRN PRN Reason: Excessive sedation or RR < 8 Ondansetron HCl (Ondansetron Hcl 4 Mg/2 Ml Vial) 4 mg IVPUSH QID PRN PRN Reason: Nausea Last Admin: 03/16/25 15:33 Dose: 4 mg Ondansetron HCl (Ondansetron Hcl 4 Mg/2 Ml Vial) 4 mg IVPUSH ONCE PRN PRN Reason: Nausea and Vomiting Stop: 03/19/25 20:06 Oxycodone HCl (Oxycodone Hcl Immed Release 5 Mg Tablet) 5 mg PO Q6H PRN PRN Reason: Pain, Moderate(Pain Scale 4-6) Last Admin: 03/19/25 10:09 Dose: 5 mg Sodium Chloride (0.9 % Sodium Chloride Flush 3 Ml Syringe) [facility] Last Admin: 03/19/25 09:22 Dose: Not Given Home Medications ?Medication ?Instructions ?Recorded ?Confirmed ?Last Taken ?Type No Known Home Meds 03/14/25 03/14/25 Un known History Exam Height,Weight and Vital Signs: Height 5 ft 7 in Weight 95.6 kg Last Vital Signs Temp 97.7 F 03/19/25 12:08 Pulse 66 03/19/25 12:08 Resp 20 03/19/25 12:08 BP 101/62 03/19/25 12:08 Pulse Ox 98 03/19/25 12:08 O2 Del Method Room Air 03/19/25 12:08 O2 Flow Rate 6 03/18/25 19:09 Pertinent Lab Results Pertinent Lab Results: Laboratory Tests 03/14/25 03/14/25 03/14/25 16:57 17:40 18:26 WBC 10.2 RBC 4.67 Hgb 13.6 L Hct 42.0 MCV 89.9 MCH 29.1 MCHC 32.4 RDW 14.5 Plt Count 334 MPV 9.7 Immature Gran % (Auto) 0.5 H Neut % (Auto) 65.9 Lymph % (Auto) 20.9 [place] % (Auto) 10.0 Eos % (Auto) 2.3 Baso % (Auto) 0.4 Lymph # (Auto) 2.1 [place] # (Auto) 1.0 Eos # (Auto) 0.2 Baso # (Auto) 0.0 Abs Immat Gran (auto) 0.05 H Absolute Neuts (auto) 6.7 Absolute Nucleated RBC 0.000 Nucleated RBC % (auto) 0.0 Hold Purple Top PT 12.6 H INR 1.1 APTT 30.3 Sodium 140 Potassium 3.6 Chloride 102 Carbon Dioxide 28 Anion Gap 14 BUN 10 Creatinine 0.79 Estim Creat Clear Calc 122.8 Estimated GFR > 60 Random Glucose 164 H Lactic Acid 1.1 Calcium 9.4 Total Bilirubin 2.0 H Direct Bilirubin AST 205 H ALT 372 H Alkaline Phosphatase 633 H Troponin I High Sens < 2.7 B-Natriuretic Peptide 15 Total Protein 7.3 Albumin 3.9 Lipase 133 H Urine Color DK YELLOW Urine Appearance Clear Urine pH 5.5 Ur Specific [place] >= 1.030 H Urine Protein 30 (1+) H Urine Glucose (UA) 100 H Urine Ketones Trace Urine Blood Negative Urine Nitrite Positive H Ur Leukocyte Esterase Negative Urine RBC 0-2 Urine WBC 0-5 Ur Squamous Epith Cells 3-5 Urine Bacteria None Seen Hyaline Casts 0-2 Granular Casts Present 03/14/25 03/15/25 03/17/25 21:48 06:05 05:57 WBC 8.5 10.3 RBC 3.89 L 3.77 L Hgb 11.4 L 11.1 L Hct 35.1 L 33.7 L MCV 90.2 89.4 MCH 29.3 29.4 MCHC 32.5 32.9 RDW 14.6 14.4 Plt Count 310 310 MPV 10.2 10.1 Immature Gran % (Auto) 0.5 H 0.5 H Neut % (Auto) 64.8 75.1 H Lymph % (Auto) 19.4 L 13.0 L [place] % (Auto) 11.2 H 10.5 Eos % (Auto) 3.4 0.7 Baso % (Auto) 0.7 0.2 Lymph # (Auto) 1.6 1.3 [place] # (Auto) 1.0 1.1 Eos # (Auto) 0.3 0.1 Baso # (Auto) 0.1 0.0 Abs Immat Gran (auto) 0.04 H 0.05 H Absolute Neuts (auto) 5.5 7.7 Absolute Nucleated RBC 0.000 0.000 Nucleated RBC % (auto) 0.0 0.0 Hold Purple Top PT INR APTT Sodium 142 Potassium 4.1 Chloride 108 Carbon Dioxide 27 Anion Gap 11 L BUN 9 Creatinine 0.77 Estim Creat Clear Calc 126.4 Estimated GFR > 60 Random Glucose 84 Lactic Acid Calcium 8.7 D Total Bilirubin 1.8 H 3.1 H Direct Bilirubin 2.4 H AST 168 H 154 H ALT 306 H 263 H Alkaline Phosphatase 490 H 618 H Troponin I High Sens B-Natriuretic Peptide Total Protein 6.1 L 5.9 L Albumin 3.2 L 3.1 L Lipase 131 H 421 H Urine Color Urine Appearance Urine pH Ur Specific [place] Urine Protein Urine Glucose (UA) Urine Ketones Urine Blood Urine Nitrite Ur Leukocyte Esterase Urine RBC Urine WBC Ur Squamous Epith Cells Urine Bacteria Hyaline Casts Granular Casts 03/18/25 06:51 WBC RBC Hgb Hct MCV MCH MCHC RDW Plt Count MPV Immature Gran % (Auto) Neut % (Auto) Lymph % (Auto) [place] % (Auto) Eos % (Auto) Baso % (Auto) Lymph # (Auto) [place] # (Auto) Eos # (Auto) Baso # (Auto) Abs Immat Gran (auto) Absolute Neuts (auto) Absolute Nucleated RBC Nucleated RBC % (auto) Hold Purple Top SEE NOTE PT INR APTT Sodium Potassium Chloride Carbon Dioxide Anion Gap BUN Creatinine Estim Creat Clear Calc Estimated GFR Random Glucose Lactic Acid Calcium Total Bilirubin 2.6 H Direct Bilirubin 1.9 H AST 123 H ALT 215 H Alkaline Phosphatase 538 H Troponin I High Sens B-Natriuretic Peptide Total Protein 5.9 L Albumin 3.0 L Lipase Urine Color Urine Appearance Urine pH Ur Specific [place] Urine Protein Urine Glucose (UA) Urine Ketones Urine Blood Urine Nitrite Ur Leukocyte Esterase Urine RBC Urine WBC Ur Squamous Epith Cells Urine Bacteria Hyaline Casts Granular Casts Airway Mallampati Class: II TM Dist: >3cm Neck ROM: Full Heart: rrr Lungs: cta Assessment and Plan Assessment Anesthesia Assessment: Anesthesia Plan Discussed and Chart Reviewed Final Anesthetic Review Family History of Problems with Anesthesia: No History of Problems with Anesthesia: No NPO: Yes ASA Class: II Final Preanesthetic Review: No Changes in Pt Med Stat, Meds/Allgs Chart Reviewed, Consent Obtained/Reviewed and Anes Risks/Benef Reviewed Patient Risk: Low Procedure Risk: Intermediate Anesthetic Plan Anesthetic Plan: GA and Agree w/ Assess. and Plan Disposition: Standard PACU
--- NOTE | 2025-03-19 16:36 | P.OP_ITS ---
Operative Note Operative Note Date of Service: 03/19/25 Narrative: Preoperative diagnosis: Acute cholecystitis, cholelithiasis, choledocholithiasis Postoperative diagnosis: Same Procedure: Laparoscopic converted to open cholecystectomy, with fenestration Surgeon: Dewayne Bell MD Hat Renovator: Abraham Denson PA-C Anesthesia: General endotracheal Indications for procedure: 49-year-old male patient found to have abdominal pain in the right upper quadrant and epigastrium determined to be related to acute cholecystitis, cholelithiasis, and choledocholithiasis. He underwent ERCP yesterday with removal of several gallstones. He presents today for laparoscopic or possible open cholecystectomy. Operative findings: Acutely inflamed and markedly in adherent gallbladder, adherent to the duodenum and colonic mesentery. Multiple tiny gallstones noted within the gallbladder. Specimen: Gallbladder Estimated blood loss: 50 mL Complications: None Drains: Theo-Iglesias large (10) Procedure details: Patient was brought to the OR and placed in a supine position. After administering general anesthesia the patient's abdomen was prepped with ChloraPrep and draped in a sterile fashion. A surgical time-out was called the consent confirmed. Patient received preoperative antibiotics and Venodyne boots were in place. Local anesthesia was infiltrated in a periumbilical region. A 5 mm incision was then made with a scalpel. The Veress needle was then inserted while elevating the abdominal cavity with towel clips. After positive drop test the abdomen was insufflated to a pressure of 15 mmHg. A 5 mm trocar was then placed under direct vision into the abdominal cavity. The abdomen was then explored in the above findings noted. A 12 mm trocar was then placed in the epigastrium under direct vision. Two 5 mm trocars were then placed in the right upper quadrant. The gallbladder was noted to be markedly distended therefore it was decompressed using a laparoscopic needle. The gallbladder was then grasped by the esl instructional assistant at the fundus and retracted cephalad. Dissection was then continued along the undersurface of the gallbladder where dense adhesions were noted to the duodenum and colonic mesentery. The dissection was noted to be very thick and stuck making progress difficult. After prolonged period of attempted dissection decision was made to continue the procedure as an open procedure. A subcostal, Latonya incision was then created on the right side and carried down through the subcutaneous tissue, past superior rectus and posterior rectus sheath and then through the peritoneum into the abdominal cavity. A Bookwalter retractor was then placed to protect the bowel. The gallbladder was brought up through the incision and grasped with a Alondra clamp. A retrograde dissection was then performed using electrocautery as well as blunt dissection with a peanut. The adhesions were gently taken down under direct vision using right angle clamp and electrocautery. Careful attention was made to avoid any injury to the bowel. The anterior surface was completely exposed and dissection continued along the liver edge using electrocautery and blunt dissection. The dissection was continued up to the cystic artery which was doubly ligated with hemoclips. The neck of the gallbladder the gallbladder was noted to have necrotic tissue which could not be adequately ligated. The decision was made to use a fenestration technique to avoid injury to the surrounding bowel and common bile duct. The gallbladder was removed at the level of the neck. Multiple gallstones were noted within the gallbladder wall sizes. These were evacuated from the abdominal cavity and the abdomen thoroughly irrigated with saline solution. No bile leak was identified at the time of the procedure. After thorough irrigation, a large Theo-Iglesias drain was left in place at the level of the distal gallbladder/cystic duct. This was brought out through a separate stab wound in the right upper quadrant. This was secured to the abdominal wall using a 3-0 nylon suture. Wounds were again checked for hemostasis and hemostasis assured. Posterior sheath was closed using a running 0 Polysorb suture. Anterior rectus sheath was then closed using a running 0 Polysorb suture. Subcutaneous tissue and dermis were then reapproximated using interrupted 3-0 Polysorb sutures. Skin was closed using skin cyndie. The patient tolerated the procedure well. Sponge, instrument, and needle counts reported as correct. The patient was transferred to PACU in stable condition.
[2025-03-19] MEDS: 0.9 % Sodium Chloride Flush 3 ML SYRINGE IVFLUSH ×2 (17:57→23:25)
[2025-03-20 02:57] VITALS: BP 115/67; PULSE 57; RESP 16; TEMP 36.1; O2SAT 99
[2025-03-20] MEDS: Dextrose 5 % and Lactated Ring 1,000 ML 125 ML IVCONT ×2 (05:57→14:49)
--- NOTE | 2025-03-20 06:47 | PM.PNGS ---
Subjective Subjective Date of Service: 03/20/25 <Haiderrojelio Altamirano Last Filed: 03/20/25 07:21> 03/20/25 <DAVID Madison Last Filed: 03/20/25 08:41> Interval history: Reports 5/10 pain on hydromorphone this morning. He attempted to get OOB with nursing assistance early this morning to urinate but was unable due to sharp, stabbing pain at the incision site. He has been using the urinal at bedside instead. Has not passed gas or stool yet. He denies nausea, vomiting, fever, but endorsed mild chills that began as we were talking although he wonders if this is due to moving his blankets when examining his abdomen. <Haider Beyer Last Filed: 03/20/25 07:21> Physical Exam Vital Signs: Vital Signs: Last Vital Signs Temp 96.9 F 03/20/25 02:57 Pulse 57 03/20/25 02:57 Resp 16 03/20/25 02:57 BP 115/67 03/20/25 02:57 Pulse Ox 99 03/20/25 02:57 O2 Del Method Nasal Cannula 03/20/25 02:57 O2 Flow Rate 2 03/20/25 02:57 BMI result Body Mass Index 33.0 <Haider Beyer Last Filed: 03/20/25 07:21> Const: General: comfortable and no acute distress <DAVID Madison Last Filed: 03/20/25 08:41> Orientation/consciousness: patient oriented x3 <DAVID Madison Last Filed: 03/20/25 08:41> Resp: Effort & Inspection: normal respiratory effort and able to speak in complete sentences <Haider Beyer Last Filed: 03/20/25 07:21> Auscultation: clear to auscultation bilaterally <Haider Beyer [facility] Filed: 03/20/25 07:21> Cardio: Rate: regular rate <Haider Beyer Filed: 03/20/25 07:21> Rhythm: regular rhythm <Haider Beyer Filed: 03/20/25 07:21> Heart sounds: S1 normal heart sound present and S2 normal heart sound present <Haider Beyer Last Filed: 03/20/25 07:21> GI: Other: Dressings clean, dry, and intact with exception of minimal strike through bleeding on the epigastric incision site dressing. Serosanguinous fluid in the AILEEN drain without evidence of bile. <Haider Beyer - Last Filed: 03/20/25 07:21> Other: Dressings clean, dry, and intact with exception of minimal strike through bleeding on the epigastric incision site dressing. Serosanguinous fluid in the AILEEN drain without evidence of bile. 130 cc overnight <Abraham Denson PA-C - Last Filed: 03/20/25 08:41> Inspection: No distended <DAVID Madison Last Filed: 03/20/25 08:41> Palpation (GI): Soft to palpation, not firm, Tenderness to palpation present (GI) (incisional), no guarding and not rigid <Abraham Denson PA-C - Last Filed: 03/20/25 08:41> Neuro: General: patient oriented x3 <DAVID Madison Last Filed: 03/20/25 08:41> Objective Data Active Medications Hydromorphone HCl (Hydromorphone Hcl 0.5 Mg/0.5 Ml Syringe) 0.5 mg IVPUSH Q3H PRN; Protocol PRN Reason: Pain, Severe (Pain Scale 7-10) Last Admin: 03/20/25 02:56 Dose: 0.5 mg Documented By: VERONICA Piperacillin Sod/Tazobactam (Sod 3.375 gm/ Sodium Chloride) 50 mls @ 100 mls/hr IV RQ6H [facility] Last Infusion: 03/20/25 06:35 Dose: Infused Documented By: VERONICA Dextrose/Lactated Ringer's (D5lr) 1,000 mls @ 125 mls/hr IVCONT .Q8H [facility] Last Admin: 03/20/25 05:57 Dose: 125 mls/hr Documented By: VERONICA Ondansetron HCl (Ondansetron Hcl 4 Mg/2 Ml Vial) 4 mg IVPUSH QID PRN PRN Reason: Nausea Last Admin: 03/16/25 15:33 Dose: 4 mg Documented By: EDWARD Oxycodone HCl (Oxycodone Hcl Immed Release 5 Mg Tablet) 5 mg PO Q6H PRN PRN Reason: Pain, Moderate(Pain Scale 4-6) Last Admin: 03/19/25 10:09 Dose: 5 mg Documented By: PHILOMENA Sodium Chloride (0.9 % Sodium Chloride Flush 3 Ml Syringe) 3 ml IVFLUSH QSHIFT [facility] Last Admin: 03/19/25 23:25 Dose: 3 ml Documented By: VERONICA <Haider Beyer - Last Filed: 03/20/25 07:21> Labs CBC & Chem 7: 03/17/25 05:57 03/15/25 06:05 <Haider Beyer - Last Filed: 03/20/25 07:21> Microbiology Microbiology Results: Microbiology 03/14/25 18:26 Blood Culture - Final Blood - Venous No growth after 5 days. 03/14/25 18:26 Blood Culture - Final Blood - Venous No growth after 5 days. <Haider Beyer - Last Filed: 03/20/25 07:21> Procedures Date of Service Date of Service: 03/20/25 <Haider Beyer - Last Filed: 03/20/25 07:21> 03/20/25 <Abraham Denson PA-C - Last Filed: 03/20/25 08:41> Progress Note: A&P Assessment and plan (1) S/P cholecystectomy: Status: Acute <Haider Beyer - Last Filed: 03/20/25 07:21> Assessment and Plan: Patient underwent cholestectomy, originally laparoscopic but transitioned to open, yesterday afternoon. He has been tolerating the procedure well since then. VSS. Patient stated that he is very worried about pain with palpation prior to the physical exam. He has been using the urinal at bedside to avoid pain. Has not yet passed gas or stool. Consumed 25% of clear liquid dinner last night per nursing note. Dressings where dry, clean, and intact with the exception of minimal strike through bleeding on the epigastric incision dressing. Serosanginous fluid in the AILEEN drain with no evidence of bile - approx. 130 mL of fluid drained since PACU. Encouraged more frequent use of incentive spirometry. Can OOB/ambulate with assistance as tolerated. Continue on clear liquids today and will advance diet as tolerated. Patient was provided an extra blanket and encouraged to notify nurse if worsening chills - will continue to monitor for signs of infection. No morning labs yet, but will follow-up when available. <Haider Beyer - Last Filed: 03/20/25 07:21> Patient underwent cholestectomy, originally laparoscopic but transitioned to open, yesterday afternoon. He has been tolerating the procedure well since then. VSS. Patient stated that he is very worried about pain with palpation prior to the physical exam. He has been using the urinal at bedside to avoid pain. Has not yet passed gas or stool. Consumed 25% of clear liquid dinner last night per nursing note. Dressings where dry, clean, and intact with the exception of minimal strike through bleeding on the epigastric incision dressing. Serosanginous fluid in the AILEEN drain with no evidence of bile - approx. 130 mL of fluid drained since PACU. Encouraged more frequent use of incentive spirometry. Can OOB/ambulate with assistance as tolerated. Continue on clear liquids today and will advance diet as tolerated. Patient was provided an extra blanket and encouraged to notify nurse if worsening chills - will continue to monitor for signs of infection. No morning labs yet, but will follow-up when available. patient POD1 s/p open cholecystectomy. Seen and examined independently, I agree with the above assesment and plan. I recommended the patient ambulate as tolerated, continue spriometry. Abdomen is soft and bengin, continues to have incisional site tenderness <Abraham Denson PA-C - Last Filed: 03/20/25 08:41> Time Spent With Patient Time: Total time managing care of this patient today ____ minutes. <Haider Beyer - Last Filed: 03/20/25 07:21> Quality Stroke Does the patient have a stroke diagnosis?: No <Haider Beyer - Last Filed: 03/20/25 07:21> VTE Prior VTE?: No <Haider Beyer - Last Filed: 03/20/25 07:21> VTE Risk Level:: Surgical - low <Haider Beyer - Last Filed: 03/20/25 07:21> VTE Device Contraindication: N/A - Device Ordered <Haider Beyer - Last Filed: 03/20/25 07:21> VTE Drug Contraindication: N/A - Med Ordered <Haider Beyer - Last Filed: 03/20/25 07:21>
--- NOTE | 2025-03-20 07:10 | PM.PNGS ---
Subjective Subjective Date of Service: 03/20/25 Physical Exam Vital Signs: Vital Signs: Last Vital Signs Temp 96.9 F 03/20/25 02:57 Pulse 57 03/20/25 02:57 Resp 16 03/20/25 02:57 BP 115/67 03/20/25 02:57 Pulse Ox 99 03/20/25 02:57 O2 Del Method Nasal Cannula 03/20/25 02:57 O2 Flow Rate 2 03/20/25 02:57 BMI result Body Mass Index 33.0 Objective Data Active Medications Hydromorphone HCl (Hydromorphone Hcl 0.5 Mg/0.5 Ml Syringe) 0.5 mg IVPUSH Q3H PRN; Protocol PRN Reason: Pain, Severe (Pain Scale 7-10) Last Admin: 03/20/25 02:56 Dose: 0.5 mg Documented By: VERONICA Piperacillin Sod/Tazobactam (Sod 3.375 gm/ Sodium Chloride) 50 mls @ 100 mls/hr IV RQ6H [facility] Last Infusion: 03/20/25 06:35 Dose: Infused Documented By: VERONICA Dextrose/Lactated Ringer's (D5lr) 1,000 mls @ 125 mls/hr IVCONT .Q8H [facility] Last Admin: 03/20/25 05:57 Dose: 125 mls/hr Documented By: VERONICA Ondansetron HCl (Ondansetron Hcl 4 Mg/2 Ml Vial) 4 mg IVPUSH QID PRN PRN Reason: Nausea Last Admin: 03/16/25 15:33 Dose: 4 mg Documented By: EDWARD Oxycodone HCl (Oxycodone Hcl Immed Release 5 Mg Tablet) 5 mg PO Q6H PRN PRN Reason: Pain, Moderate(Pain Scale 4-6) Last Admin: 03/19/25 10:09 Dose: 5 mg Documented By: PHILOMENA Sodium Chloride (0.9 % Sodium Chloride Flush 3 Ml Syringe) [facility] Last Admin: 03/19/25 23:25 Dose: 3 ml Documented By: VERONICA Labs 03/17/25 05:57 03/15/25 06:05 Microbiology Microbiology Results: Microbiology 03/14/25 18:26 Blood Culture - Final Blood - Venous No growth after 5 days. 03/14/25 18:26 Blood Culture - Final Blood - Venous No growth after 5 days. Procedures Date of Service Date of Service: 03/20/25 Progress Note: A&P Time Spent With Patient Time: Total time managing care of this patient today ____ minutes. Quality Stroke Does the patient have a stroke diagnosis?: No VTE Prior VTE?: No VTE Risk Level:: Surgical - low VTE Device Contraindication: N/A - Device Ordered VTE Drug Contraindication: N/A - Med Ordered
[2025-03-20] MEDS: oxyCODONE HCl Immed Release 5 MG TABLET PO (07:18)
[2025-03-20 07:38] VITALS: BP 114/61; PULSE 59; RESP 16; TEMP 37.1; O2SAT 97
[2025-03-20] MEDS: oxyCODONE HCl Immed Release 5 MG TABLET 10 MG PO ×4 (08:11→19:58)
--- NOTE | 2025-03-20 11:17 | HO.POSTANES ---
Post Anesthesia Evaluation Post Anesthesia Evaluation Date of Service: 03/20/25 Vital Signs: Vital Signs Temp Pulse Resp BP Pulse Ox O2 Del Method O2 Flow Rate 03/20/25 07:38 98.8 F 59 16 114/61 97 Room Air 03/20/25 02:57 96.9 F 57 16 115/67 99 Nasal Cannula 2
--- NOTE | 2025-03-20 11:20 | HO.POSTANES ---
Post Anesthesia Evaluation Post Anesthesia Evaluation Date of Service: 03/20/25 Vital Signs: Vital Signs Temp Pulse Resp BP Pulse Ox O2 Del Method O2 Flow Rate 03/20/25 07:38 98.8 F 59 16 114/61 97 Room Air 03/20/25 02:57 96.9 F 57 16 115/67 99 Nasal Cannula 2 Anesthesia: General Mental Status: Awake Pain Control: Satisfactory Nausea/Vomiting: None Hydration: Adequate Anesthesia-Related Issues: No Anes. Related Issues Comments: Pt was resting comfortably upon evaluation. Pts nurse was contacted and communicated no anesthesia issues
[2025-03-20 15:32] VITALS: BP 122/69; PULSE 91; RESP 16; TEMP 37.3; O2SAT 96
[2025-03-20 19:09] VITALS: BP 110/65; PULSE 86; RESP 18; TEMP 37.1; O2SAT 96
[2025-03-21] MEDS: Dextrose 5 % and Lactated Ring 1,000 ML 80 ML IVCONT ×2 (00:12→12:21)
[2025-03-21] MEDS: 0.9 % Sodium Chloride Flush 3 ML SYRINGE IVFLUSH (00:13)
[2025-03-21] MEDS: oxyCODONE HCl Immed Release 5 MG TABLET 10 MG PO ×2 (00:14→20:17)
[2025-03-21 04:00] VITALS: BP 105/63; PULSE 59; RESP 16; TEMP 36.4; O2SAT 98
--- NOTE | 2025-03-21 06:49 | P.PNGS_ITS ---
Subjective Subjective Date of Service: 03/21/25 <Haider Beyer - Last Filed: 03/21/25 07:07> 03/21/25 <Abraham Denson PA-C - Last Filed: 03/21/25 08:27> Interval history: Nursing assisted the patient OOB to the bathroom this morning. He reports 9/10 pain due to ambulating, but otherwise 3/10 pain prior to going to the toilet. He passed gas once yesterday but has not passed stool and is concerned about the potential pain with defecation. Denies [place], vomiting, fever, and chills. <Haider Beyer [employer] Last Filed: 03/21/25 07:07> Physical Exam 2 Vital Signs: Vital Signs: Last Vital Signs Temp 97.5 F 03/21/25 04:00 Pulse 59 03/21/25 04:00 Resp 16 03/21/25 04:00 BP 105/63 03/21/25 04:00 Pulse Ox 98 03/21/25 04:00 O2 Del Method Room Air 03/21/25 04:00 O2 Flow Rate 2 03/20/25 02:57 BMI result Body Mass Index 33.0 <Haider Beyer - Last Filed: 03/21/25 07:07> Const: General: other (uncomfortable appearing) <Haider Beyer Filed: 03/21/25 07:07> General: no acute distress <DAVID Madison Last Filed: 03/21/25 08:27> Orientation/consciousness: patient oriented x3 <Haider Beyer [employer] Last Filed: 03/21/25 07:07> Resp: Effort & Inspection: normal respiratory effort and able to speak in complete sentences <Abraham Denson PA-C - Last Filed: 03/21/25 08:27> Cardio: Rate: regular rate <Haider Beyer [employer] Last Filed: 03/21/25 07:07> Rhythm: regular rhythm <Haider Beyre [employer] Filed: 03/21/25 07:07> Heart sounds: S1 normal heart sound present and S2 normal heart sound present <Haider Beyer [employer] Last Filed: 03/21/25 07:07> GI: Other: Dressings are clean, dry, and intact with the exception of some strike through bleeding from the day before but no new strike-through bleeding. Serosanguinous fluid in the AILEEN tube with no evidence of bile. <Haider Beyer - Last Filed: 03/21/25 07:07> Other: Dressings are clean, dry, and intact with the exception of some strike through bleeding from the day before but no new strike-through bleeding. Serosanguinous fluid in the AILEEN tube with no evidence of bile. output 125 in last 24 <Abraham Denson PA-C - Last Filed: 03/21/25 08:27> Inspection: No distended <Abraham Denson PA-C - Last Filed: 03/21/25 08:27> Palpation (GI): Soft to palpation, not firm, Tenderness to palpation present (GI) (RUQ incisional), no guarding and not rigid <Abraham Denson PA-C - Last Filed: 03/21/25 08:27> Neuro: General: patient oriented x3 <Haider Beyer - Last Filed: 03/21/25 07:07> Extrem: General: Yes no pedal edema <Haider Beyer - Last Filed: 03/21/25 07:07> Objective Data Active Medications Calcium Carbonate (Calcium Carbonate 750 Mg Tab.Chew) 750 mg PO Q4H PRN PRN Reason: Heartburn Docusate Sodium (Docusate Sodium 100 Mg Capsule) 100 mg PO BID [facility] Last Admin: 03/20/25 19:57 Dose: 100 mg Documented By: GERSON Hydromorphone HCl (Hydromorphone Hcl 0.5 Mg/0.5 Ml Syringe) 0.5 mg IVPUSH Q3H PRN; Protocol PRN Reason: Pain, Severe (Pain Scale 7-10) Last Admin: 03/21/25 06:40 Dose: 0.5 mg Documented By: GERSON Piperacillin Sod/Tazobactam (Sod 3.375 gm/ Sodium Chloride) 50 mls @ 100 mls/hr IV RQ6H [facility] Last Admin: 03/21/25 06:41 Dose: 100 mls/hr Documented By: GERSON Dextrose/Lactated Ringer's (D5lr) 1,000 mls @ 80 mls/hr IVCONT .[id number] [facility] Last Admin: 03/21/25 00:12 Dose: 80 mls/hr Documented By: GERSON Melatonin (Melatonin 3 Mg Tablet) 6 mg PO BEDTIME PRN PRN Reason: Insomnia Ondansetron HCl (Ondansetron Hcl 4 Mg/2 Ml Vial) 4 mg IVPUSH QID PRN PRN Reason: Nausea Last Admin: 03/16/25 15:33 Dose: 4 mg Documented By: EDWARD Oxycodone HCl (Oxycodone Hcl Immed Release 5 Mg Tablet) 10 mg PO Q4H PRN PRN Reason: Pain, Moderate(Pain Scale 4-6) Last Admin: 03/21/25 00:14 Dose: 10 mg Documented By: GERSON Sodium Chloride (0.9 % Sodium Chloride Flush 3 Ml Syringe) 3 ml IVFLUSH QSHIFT [facility] Last Admin: 03/21/25 00:13 Dose: 3 ml Documented By: GERSON <Haider Beyer - Last Filed: 03/21/25 07:07> Labs CBC & Chem 7: 03/17/25 05:57 03/15/25 06:05 <Haider Beyer - Last Filed: 03/21/25 07:07> Procedures Date of Service Date of Service: 03/21/25 <Haider Beyer - Last Filed: 03/21/25 07:07> 03/21/25 <Abraham Denson PA-C - Last Filed: 03/21/25 08:27> Progress Note: A&P Assessment and plan (1) S/P cholecystectomy: Status: Acute <Haider Beyer - Last Filed: 03/21/25 07:07> Assessment and Plan: Patient is doing better overall today. Pain is well controlled at rest, but sharp pain with activity. He is starting to ambulate with assistance from nursing - reports OOB is very painful but he does want to start ambulating more. Encouraged to ambulate with assistance progressively as tolerated. Also reports that he is keeping up with spirometry. Passed gas yesterday, but no stool yet - he is concerned about pain with defecating. Already on docusate, but will add order for milk of magnesia today. Serosanguinous fluid in the AILEEN tube with no evidence of bile - approx. 125mL since yesterday. Dressings C/D/I with no fresh strike-through bleeding since yesterday. Will advance diet today. <Haider Beyer - Last Filed: 03/21/25 07:07> Patient is doing better overall today. Pain is well controlled at rest, but sharp pain with activity. He is starting to ambulate with assistance from nursing - reports OOB is very painful but he does want to start ambulating more. Encouraged to ambulate with assistance progressively as tolerated. Also reports that he is keeping up with spirometry. Passed gas yesterday, but no stool yet - he is concerned about pain with defecating. Already on docusate, but will add order for milk of magnesia today. Serosanguinous fluid in the AILEEN tube with no evidence of bile - approx. 125mL since yesterday. Dressings C/D/I with no fresh strike-through bleeding since yesterday. Will advance diet today. patient POD2 s/p cholecystectomy. seen and examine independently, i agree with the above assessment and plan. AILEEN will remain, 125 cc overnight, appears serosanguineous. monitor output. patient is tolerating clear liquid diet. Will advance to regular diet. Will remove dressings this afternoon when patient is more comfortable Advance to regular diet ambulation and spirometry add milk of mag to bowel regimen pain control labs pending <Abraham Denson PA-C - Last Filed: 03/21/25 08:27> Time Spent With Patient Time: Total time managing care of this patient today ____ minutes. <Haiedr Beyer - Last Filed: 03/21/25 07:07> Quality Stroke Does the patient have a stroke diagnosis?: No <Haider Beyer - Last Filed: 03/21/25 07:07> VTE Prior VTE?: No <Haider Beyer - Last Filed: 03/21/25 07:07> VTE Risk Level:: Surgical - low <Haider Beyer - Last Filed: 03/21/25 07:07> VTE Device Contraindication: N/A - Device Ordered <Haider Beyer - Last Filed: 03/21/25 07:07> VTE Drug Contraindication: N/A - Med Ordered <Haider Beyer - Last Filed: 03/21/25 07:07>
[2025-03-21 08:00] VITALS: BP 123/72; PULSE 63; RESP 14; TEMP 36.9; O2SAT 96
[2025-03-21 09:32] LABS: Hematocrit 32.5 % (42.0-52.0); Hemoglobin 10.6 g/dl (14.0-18.0); Mean Corpuscular HGB Conc 32.6 g/dl (31.0-36.0); Mean Corpuscular Hemoglobin 29.7 pg (27.0-33.0); Mean Corpuscular Volume 91.0 fL (80.0-98.0); NRBC Abs Auto 0.000 X10*3/uL (0.0-0.012); NRBC Pct Auto 0.0 /100WBC (0.0-0.2); Platelet Count 382 X10*3/uL (160-400); Red Blood Count 3.57 X10*6/uL (4.60-5.80); White Blood Count 9.5 X10*3/uL (4.8-10.8)
[2025-03-21 09:41] LABS: Anion Gap 9 (12-20); Blood Urea Nitrogen 5 mg/dL (9-16); Calcium 8.6 mg/dL (8.4-10.2); Carbon Dioxide 31 mmol/L (22-29); Chloride 104 mmol/L (96-108); Creatinine Clr Calc Pharmacy 115.9; Estimated Glomerular Filt Rate > 60; Potassium 3.6 mmol/L (3.3-5.1); Sodium 140 mmol/L (135-145)
[2025-03-21 15:50] VITALS: BP 110/63; PULSE 97; RESP 14; TEMP 36.6; O2SAT 98
[2025-03-21 19:15] VITALS: BP 121/58; PULSE 79; RESP 16; TEMP 36.5; O2SAT 98
[2025-03-22] MEDS: Dextrose 5 % and Lactated Ring 1,000 ML 80 ML IVCONT (00:24)
[2025-03-22] MEDS: 0.9 % Sodium Chloride Flush 3 ML SYRINGE IVFLUSH (00:25)
[2025-03-22 03:28] VITALS: BP 112/69; PULSE 63; RESP 16; TEMP 37.1; O2SAT 97
[2025-03-22] MEDS: oxyCODONE HCl Immed Release 5 MG TABLET 10 MG PO ×2 (05:38→09:15)
--- NOTE | 2025-03-22 06:46 | P.PNGS_ITS ---
Subjective Subjective Date of Service: 03/22/25 <Haider Beyer - Last Filed: 03/22/25 07:20> 03/22/25 <Abraham Denson PA-C - Last Filed: 03/22/25 07:48> 03/22/25 <Dewayne Bell MD - Last Filed: 03/22/25 08:19> Interval history: Reports 0/10 pain on oxycodone 10mg with administration approx. 1 hour ago. Pain was 2/10 prior to re-administration of pain medication. He has been ambulating to the toilet and in the hallway with assistance as well as sitting in the chair. He also reports using spirometry as many as 25x an hour. Reports 2/10 pain with ambulation. He reports that he passed a lot of gas yesterday and feels like he could have a bowel movement but has been hesitant to try due to concerns about wanting to clean himself independently. Patient reports that he has been tolerating the regular diet well and denies nausea and vomiting. He denies fever and chills. <Haider Beyer - Last Filed: 03/22/25 07:20> Reports 0/10 pain on oxycodone 10mg with administration approx. 1 hour ago. Pain was 2/10 prior to re-administration of pain medication. He has been ambulating to the toilet and in the hallway with assistance as well as sitting in the chair. He also reports using spirometry as many as 25x an hour. Reports 2/10 pain with ambulation. He reports that he passed a lot of gas yesterday and feels like he could have a bowel movement but has been hesitant to try due to concerns about wanting to clean himself independently. Patient reports that he has been tolerating the regular diet well and denies nausea and vomiting. He denies fever and chills. <Abraham Denson PA-C - Last Filed: 03/22/25 07:48> Physical Exam 2 Vital Signs: Vital Signs: Last Vital Signs Temp 98.7 F 03/22/25 03:28 Pulse 63 03/22/25 03:28 Resp 16 03/22/25 03:28 BP 112/69 03/22/25 03:28 Pulse Ox 97 03/22/25 03:28 O2 Del Method Room Air 03/22/25 03:28 O2 Flow Rate 2 03/20/25 02:57 BMI result Body Mass Index 33.0 <Haider Beyer Filed: 03/22/25 07:20> Const: General: comfortable <Haider Beyer Filed: 03/22/25 07:20> Orientation/consciousness: patient oriented x3 <Haider Filed: 03/22/25 07:20> Resp: Effort & Inspection: normal respiratory effort and able to speak in complete sentences <Haider Filed: 03/22/25 07:20> Auscultation: clear to auscultation bilaterally <Haider Filed: 03/22/25 07:20> Cardio: Rate: regular rate <Haider Filed: 03/22/25 07:20> Rhythm: regular rhythm <Haider Filed: 03/22/25 07:20> Heart sounds: S1 normal heart sound present and S2 normal heart sound present <Haider Filed: 03/22/25 07:20> GI: Other: Dressings are C/D/I. Incisions sites appear clean and dry with some minimal residual exudative/hemorrhagic crust and without evidence of infection including erythema, edema, warmth, or purulence. AILEEN tube fluid appears serosanguinous - approx. 80mL of output since yesterday. <Haider Beyer Filed: 03/22/25 07:20> Inspection: No distended <Abraham Denson PA-C - Last Filed: 03/22/25 07:48> Palpation (GI): Soft to palpation, no guarding and not rigid <Haider Last Filed: 03/22/25 07:20> Palpation (GI): nontender <Abraham Denson PA-C - Last Filed: 03/22/25 07:48> Neuro: General: patient oriented x3 <Haider Filed: 03/22/25 07:20> Extrem: General: Yes no pedal edema <Haider Filed: 03/22/25 07:20> Objective Data Active Medications Calcium Carbonate (Calcium Carbonate 750 Mg Tab.Chew) 750 mg PO Q4H PRN PRN Reason: Heartburn Docusate Sodium (Docusate Sodium 100 Mg Capsule) 100 mg PO BID [facility] Last Admin: 03/21/25 20:17 Dose: 100 mg Documented By: ABDIAS Hydromorphone HCl (Hydromorphone Hcl 0.5 Mg/0.5 Ml Syringe) 0.5 mg IVPUSH Q3H PRN; Protocol PRN Reason: Pain, Severe (Pain Scale 7-10) Last Admin: 03/21/25 15:33 Dose: 0.5 mg Documented By: EDWARD Piperacillin Sod/Tazobactam (Sod 3.375 gm/ Sodium Chloride) 50 mls @ 100 mls/hr IV RQ6H [facility] Last Infusion: 03/22/25 06:10 Dose: Infused Documented By: WILLIS Dextrose/Lactated Ringer's (D5lr) 1,000 mls @ 80 mls/hr IVCONT .[id number] [facility] Last Admin: 03/22/25 00:24 Dose: 80 mls/hr Documented By: WILLIS Magnesium Hydroxide (Milk Of Magnesia 30 Ml Oral.Susp) 15 ml PO BID PRN PRN Reason: Constipation Melatonin (Melatonin 3 Mg Tablet) 6 mg PO BEDTIME PRN PRN Reason: Insomnia Ondansetron HCl (Ondansetron Hcl 4 Mg/2 Ml Vial) 4 mg IVPUSH QID PRN PRN Reason: Nausea Last Admin: 03/16/25 15:33 Dose: 4 mg Documented By: EDWARD Oxycodone HCl (Oxycodone Hcl Immed Release 5 Mg Tablet) 10 mg PO Q4H PRN PRN Reason: Pain, Moderate(Pain Scale 4-6) Last Admin: 03/22/25 05:38 Dose: 10 mg Documented By: GWENDOLYN Sodium Chloride (0.9 % Sodium Chloride Flush 3 Ml Syringe) 3 ml IVFLUSH QSHIFT [facility] Last Admin: 03/22/25 00:25 Dose: 3 ml Documented By: WILLIS <Haider Beyer - Last Filed: 03/22/25 07:20> Labs CBC & Chem 7: 03/21/25 09:13 03/21/25 09:13 <Haider Beyer - Last Filed: 03/22/25 07:20> Labs: Laboratory Results - last 24 hr 03/21/25 09:13 MCV 91.0 MCH 29.7 MCHC 32.6 RDW 14.7 Plt Count 382 MPV 9.8 Absolute Nucleated RBC 0.000 Nucleated RBC % (auto) 0.0 Anion Gap 9 L Estim Creat Clear Calc 115.9 Estimated GFR > 60 Random Glucose 114 Calcium 8.6 <Haider Beyer - Last Filed: 03/22/25 07:20> Procedures Date of Service Date of Service: 03/22/25 <Haider Beyer - Last Filed: 03/22/25 07:20> 03/22/25 <Abraham Denson PA-C - Last Filed: 03/22/25 07:48> 03/22/25 <Dewayne Bell MD - Last Filed: 03/22/25 08:19> Progress Note: A&P Assessment and plan (1) S/P cholecystectomy: Status: Acute <Haider Beyer - Last Filed: 03/22/25 07:20> Assessment and Plan: Patient is POD#3 s/p open cholescystectomy. VSS. Overall, he is much improved. Pain is well controlled, tolerating transition to PO pain medication well. Has been able to increase OOB/ambulation with assistance without significant pain. Also has been using spirometry often. He has also been tolerating the regular diet well and denies any nausea or vomiting. Patient reports passing a lot of gas yesterday and feels like he could have a bowel movement but has been hesitant due to desire to avoid assistance with cleaning up afterwards. Incision site dressings were removed yesterday and incisions sites appear to be healing appropriately without complications. Dressing around AILEEN drain appears C/D/I. Serosanguinous fluid in the AILEEN drain without evidence of bile and total amount drained continues to trend down - approx. 80mL since yesterday. Will consider discharge for tomorrow. <Haider Beyer - Last Filed: 03/22/25 07:20> Patient is POD#3 s/p open cholescystectomy. VSS. Overall, he is much improved. Pain is well controlled, tolerating transition to PO pain medication well. Has been able to increase OOB/ambulation with assistance without significant pain. Also has been using spirometry often. He has also been tolerating the regular diet well and denies any nausea or vomiting. Patient reports passing a lot of gas yesterday and feels like he could have a bowel movement but has been hesitant due to desire to avoid assistance with cleaning up afterwards. Incision site dressings were removed yesterday and incisions sites appear to be healing appropriately without complications. Dressing around AILEEN drain appears C/D/I. Serosanguinous fluid in the AILEEN drain without evidence of bile and total amount drained continues to trend down - approx. 80mL since yesterday. Will consider discharge for tomorrow. pateint seen and evaluated indepently, i agree with the above assesment and plan. Patient is doing well, feeling like he is ready to go home. likely plan for DC tomorrow <Abraham Denson PA-C - Last Filed: 03/22/25 07:48> Patient is POD#3 s/p open cholescystectomy. VSS. Overall, he is much improved. Pain is well controlled, tolerating transition to PO pain medication well. Has been able to increase OOB/ambulation with assistance without significant pain. Also has been using spirometry often. He has also been tolerating the regular diet well and denies any nausea or vomiting. Patient reports passing a lot of gas yesterday and feels like he could have a bowel movement but has been hesitant due to desire to avoid assistance with cleaning up afterwards. Incision site dressings were removed yesterday and incisions sites appear to be healing appropriately without complications. Dressing around AILEEN drain appears C/D/I. Serosanguinous fluid in the AILEEN drain without evidence of bile and total amount drained continues to trend down - approx. 80mL since yesterday. Will consider discharge for tomorrow. pateint seen and evaluated indepently, i agree with the above assesment and plan. Patient is doing well, feeling like he is ready to go home. likely plan for DC tomorrow Much improved today with minimal pain and markedly decreased AILEEN output. No bile noted in bulb. He is tolerating a regular diet without nausea or vomiting. AILEEN was removed this morning. Patient feels comfortable enough for discharge today. I will discharge him today with follow-up in the office in approximately 1 week for staple removal. He should call sooner for any increased pain, nausea, or vomiting. <Dewayne Bell MD - Last Filed: 03/22/25 08:19> Time Spent With Patient Time: Total time managing care of this patient today ____ minutes. <Haider Beyer - Last Filed: 03/22/25 07:20> Quality Stroke Does the patient have a stroke diagnosis?: No <Haider Beyer - Last Filed: 03/22/25 07:20> VTE Prior VTE?: No <Haider Beyer - Last Filed: 03/22/25 07:20> VTE Risk Level:: Surgical - low <Haider Beyer - Filed: 03/22/25 07:20> VTE Device Contraindication: N/A - Device Ordered <Haider Beyer - Last Filed: 03/22/25 07:20> VTE Drug Contraindication: N/A - Med Ordered <Haider Beyer - Last Filed: 03/22/25 07:20>
[2025-03-22 07:07] LABS: Glucose, Whole Blood 84 mg/dL (60-115)
[2025-03-22 07:26] VITALS: BP 127/65; PULSE 76; RESP 16; TEMP 37.1; O2SAT 95
--- NOTE | 2025-03-22 08:58 | MHC.CM.PN ---
PT WILL DC HOME TODAY WITH NO SERVICES VIA PRIVATE TRANSPORT
--- NOTE | 2025-03-25 13:24 | P.DS_ITS ---
DS: Providers Provider Date of Service: 03/22/25 Date of admission: 03/14/25 20:21 Date of discharge: 03/22/25 Primary care physician: Nettie Physician Admitting clinician: Loan Gilliam Attending physician on admission: Loan Gilliam Consults: 03/15/25 07:12 Consult to Gastroenterology Routine Consulting Provider: Christina Marie Reason for consultation: CBD stone Attending physician on discharge: Srinivas Mccoy DS: Diagnosis Discharge Diagnosis (1) S/P cholecystectomy: Status: Acute DS: Summary Hospital Course Hospital Course: Admission HPI: Danish Head is a 49 year old male who resents to the ER with a 2 week history of not feeling well- he has been having vomiting and abdominal pain - epigastric area and to the right upper quadrant. Recently noted that urine has been very dark. He went to see his pcp who thought maybe he had an ulcer and gave him sucralfat which didnt do much. the symptms were woresening including the pain and so he came here to be evaluated. Here lfts noted to be elevated, u/s showing cholecystitis and dilated CBD - MRCP carried [facility] shows stones in GB, BCD and cystic duct. Pt feeling better now Pt is s/p sleeve gastrectomy at [facility] 5 yrs ago adn has lost 100lbs. plan to admit , npo ivf, GI consult, repeat labs, iv Zosyn. may need ERCP and then lap heidi Hospital Course: The patient was admitted, on the second day of admission patient pain was improving, he was trialled on clear liquids which he tolerated well. Continued to have intermittent abdominal pain Repeat labs were drawn LFTs remained elevated, patient was scheduled for ERCP on sunday 03/18. CBD stone was removed via ERCP. He was made NPO and we proceeded with plan for lap heidi on 03/19. During the procedure, due to adhesions to the duodenum and colonic mesentary, the procedure was converted to open. A AILEEN drain was left in place. On POD 1 patient was overall doing well, had not been OOB due to pain, AILEEN remained in place, output was moderate, serosanguenious, bile was absent. He was tolerating clear liquid diet. POD2 patient continued to improve, output from AILEEN decreased, remained serosanguenious. Pain was better controlled. Patient was ambulating and using spirometry as tolerated. Diet was advanced to regular. Dressings were removed, incision appeared clean dry and intact, gordo remained in place. Abdomen was soft and benign. POD3 the patient was much improved, pain was well controlled on oral medications. AILEEN output was significantly decreased. patient felt ready to go home. AILEEN drain was removed at bedside, patient tolerated well. Incisions remained clean dry adn intact, gordo in place. His abdominal exam was soft and benign. The patient was discharged in stable condition on 03/22. Status at Discharge Functional status at discharge: independent ambulation Overall status at discharge: patient is progressing back to baseline Time Attestation Discharge Coordination Time (in mins): 30 Quality: Safe Use of Opioids Does Pt have an Active Cancer Diagnosis on the Problem List?: No Quality: Stroke Does the patient have a stroke diagnosis?: No Physical Exam Vital Signs: Vital Signs: Last Vital Signs Temp 98.7 F 03/22/25 07:26 Pulse 76 03/22/25 07:26 Resp 16 03/22/25 07:26 BP 127/65 03/22/25 07:26 Pulse Ox 95 03/22/25 07:26 O2 Del Method Room Air 03/22/25 07:26 O2 Flow Rate 2 03/20/25 02:57 BMI result Body Mass Index 33.0 Const: General: comfortable and no acute distress Orientation/consci ousness: patient oriented x3 Resp: Effort & Inspection: normal respiratory effort and able to speak in complete sentences GI: Other: incisions are clean dry and intact. Gordo remained in place in RUQ incision and umbilical incision. Inspection: No distended Palpation (GI): Soft to palpation, not firm, Tenderness to palpation present (GI) (mild incisional), no guarding and not rigid Neuro: General: patient oriented x3 DS: Data Data Completed and Pending Completed studies during hospitalization [Text1]: Pending at discharge 03/19/25 16:18 Surgical [PTH] Routine Discharge Plan Discharge Anticipated Discharge Date/Time: 03/22/25 08:16 Patient Disposition: Home, Self-Care Discharge Diagnosis: s/p open cholecystectomy Referrals: Dewayne Bell MD [Physician, General Surgery] - 1 Week Physician,None [Primary Care Provider, Medical] - 1 Week Discharge Medications: New docusate sodium [Colace] 100 mg capsule 100 mg PO BID Qty: 30 0RF oxycodone 5 mg tablet 5 mg PO Q6H PRN (Reason: pain (scale score 7-10)) Qty: 16 0RF Rx Instructions: Partial Fill upon patient request. Discharge Orders: Discharge Order (Routine); Ordered 03/22/25 Ordered By: Abraham Denson Diet: Advance to usual diet Activity on Discharge: No heavy lifting Stand Alone Forms: Patient Portal Discharge page Print Language: Yakut Activity Restrictions/Additional Instructions: If your incision site is sore, you may apply ice to the area for short periods of time (no more than 20 minutes at a time, followed by 20 minutes off). You were prescribed oxycodone to assist with pain management as needed. You can additionally use OTC ibuprofen or acetaminophen as needed for pain. You can remove the dressings at home, they do not need to be redressed. Steri strips can remain in place and will likely fall on their own or in the shower. No heavy lifting >20 pounds No strenuous activity. Do not use creams, lotion, ointment on the incision sites You will follow up with Dr. Bell in the office in 1 week, you can call the office to schedule the appointment ) Please reach out to the office or be seen at the emergency department if you develop: -Fever >101.5 -Increasing pain or swelling of the area -Increased bleeding from the incision site or the incision begins to separate -If you are concerned for incision site infection such as redness, warmth, discharge. Some yellow/pink tinged discharge is normal -You develop nausea or vomiting Care Plan Goals: return to baseline level of health Health Concerns: post op pain s/p cholecystectomy Plan of Treatment: pain control follow up in the office in 1 week Assessment: doing well post op Discharge Date/Time: 03/22/25 10:11
== END 2025-03-22 10:11 | disposition home or self-care (01) | DRG 414 ==
LOC: HO.ED 18:30 → HO.EDOVER 20:28 → HO.S3 23:43
PROVIDERS: Internal Medicine Gastroenterology; Physician Assistant; Admitting Provider Surgery; Emergency Provider Emergency Medicine; Visit Provider Surgery
PROC: 0FC98ZZ Extirpation of Matter from Common Bile Duct, Via Natural or Artificial Opening Endoscopic (ICD-10-PCS; CPT 43260; principal; 2025-03-18 17:00)
PROC: 0FT44ZZ Resection of Gallbladder, Percutaneous Endoscopic Approach (ICD-10-PCS; CPT 47562; principal; 2025-03-19 13:00)
DX: K80.62 Calculus of gallbladder and bile duct with acute cholecystitis without obstruction (principal); K85.10 Biliary acute pancreatitis without necrosis or infection; Z98.84 Bariatric surgery status
CPT/HCPCS: 36415; 74177; 74181; 76705; 80048; 80053; 80076; 81001; 82947; 83605; 83690; 83880; 84484; 85025; 85027; 85610; 85730; 87040; 87086; 88304; 93005; 99285; C1769; J1171; J1610; J1650; J2003; J2270; J2405; J2543; J2704; J2795; J3010; Q9967

== ENCOUNTER → 2025-03-14 16:26 | Outpatient (BNV) | payer SELFPAY | PROVIDERS: Admitting Provider Surgery; Emergency Provider Emergency Medicine; Visit Provider Internal Medicine Cardiovascular Disease | DX: R10.9 Unspecified abdominal pain (principal) | CPT/HCPCS: 93010 ==

== ENCOUNTER → 2025-03-14 16:26 | Outpatient (BNV) | payer SELFPAY | PROVIDERS: Emergency Provider Emergency Medicine; Visit Provider Radiology Diagnostic Radiology | DX: K82.8 Other specified diseases of gallbladder (principal); K80.20 Calculus of gallbladder without cholecystitis without obstruction | CPT/HCPCS: 74177; 74181; 76705 ==

== ENCOUNTER → 2025-03-14 20:21 | Outpatient (BNV) | payer SELFPAY | PROVIDERS: Admitting Provider Surgery; Emergency Provider Emergency Medicine; Visit Provider Internal Medicine Gastroenterology | DX: K81.0 Acute cholecystitis (principal); K85.10 Biliary acute pancreatitis without necrosis or infection; K80.50 Calculus of bile duct without cholangitis or cholecystitis without obstruction | CPT/HCPCS: 99222; 99232 ==

== ENCOUNTER → 2025-03-14 20:21 | Outpatient (BNV) | payer SELFPAY | PROVIDERS: Admitting Provider Surgery; Emergency Provider Emergency Medicine; Visit Provider Surgery | DX: K80.50 Calculus of bile duct without cholangitis or cholecystitis without obstruction (principal); R74.01 Elevation of levels of liver transaminase levels | CPT/HCPCS: 99223; 99232; 99499 ==

== ENCOUNTER 2025-03-28 11:09 | Outpatient (AMB) | payer SELFPAY ==
[2025-03-28 11:14] VITALS: BP 106/66; PULSE 76; RESP 16; TEMP 36.9; BMI 32.6
--- NOTE | 2025-03-28 11:14 | A.OFFVIS_ITS ---
Vital Signs 03/28/25 11:14 Height 5 ft 7 in Weight 208 lb BMI 32.6 BP 106/66 Blood Pressure Location Lt brachial Position Sitting Respiration 16 Pulse 76 Temp 98.5 F Intake Visit Reasons: s/p cholecystectomy Intake Note: Pt states, I'm here to get my cyndie out. I'm doing better - still get tired easily but eating normal. Reports bowels working well. States pain is decreasing. Precision Structural Metal Fitter Required: No Allergies No Known Allergies Allergy (Verified 03/28/25 11:18) Medication List - Last Reconciled 03/28/25 by Juan Malhotra, RN docusate sodium (Colace) 100 mg PO BID oxycodone 5 mg PO Q6H PRN HPI HPI s/p cholecystectomy: Details: Patient reports he is doing well. Pain has been well controlled, now was minimal. Has taken oxycodone a few times to help sleep. Supplement with [id number] Tylenol and ibuprofen. Diet is at baseline, denies nausea or vomiting. He has been trying to avoid fatty foods. Bowel function is at baseline. Denies fever, chills. Has not done any heavy lifting. [facility] Surgical History History of cholecystectomy (03/19/25) Hx of gastric bypass Hx of arthroscopy of right knee Social History Household Members: Spouse Housing: Apartment Do you presently have visiting nurse or other home services: No Patient Tobacco Use Status: Never used Tobacco e-Cigarette/Vaping Use: Never Used Second Hand Smoke Exposure: No service: No Review of Systems Const All systems reviewed & are unremarkable except as noted in HPI and below Physical Exam Vital Signs: Last Vital Signs Temp 98.5 F 03/28/25 11:14 Pulse 76 03/28/25 11:14 Resp 16 03/28/25 11:14 BP 106/66 03/28/25 11:14 BMI result Body Mass Index 32.6 Const General: comfortable and no acute distress Orientation/consciousness: patient oriented x3 Resp Effort & Inspection: normal respiratory effort and able to speak in complete sentences GI Other: Protuberant abdomen. Cyndie in place in right upper quadrant incision site and umbilicus. No surrounding erythema no warmth mildly tender. Incision sites look clean dry and intact Inspection: No distended Palpation (GI): Soft to palpation, not firm, Tenderness to palpation present (GI) (Mild incisional right upper quadrant), no guarding and not rigid Neuro General: patient oriented x3 Assessment & Plan Assessment & Plan (1) S/P cholecystectomy: Code(s): Z90.49 - Acquired absence of other specified parts of digestive tract Category: Medical Plan 49-year-old male s/p laparoscopic converted to open cholecystectomy on 03/19/2025 presenting to the office for routine one-week follow-up. Patient is overall doing very well. His pain is well controlled. He does have some pain with ambulation but denies pain at rest. Appetite and bowel function are at baseline. On exam his abdomen is soft and benign. Incision sites appear clean dry and intact, no concern for infection at this time I removed all of the cyndie from the right upper quadrant incision site as well as the umbilicus. Patient tolerated this well, the incisions remained intact. Patient will continue with activity restrictions no heavy lifting greater than 15-20 lb until her next visit. Patient will follow up in 3 weeks for routine one-month follow up. He can call or return sooner with any questions or concerns Coding Level of Care Code Est Pt Level 3 (74548) Diagnoses S/P cholecystectomy Z90.49
--- OUTSIDE RECORDS SUMMARY | 2025-03-28 11:59 | XMS_ITS ---
Author Name [facility] Organization Unknown Encounters Encounter Type Encounter Reason Primary Diagnosis Location Date Ambulatory Other tear of medial meniscus, current injury, right knee, initial encounter Other tear of medial meniscus, current injury, right knee, initial encounter [facility] 05/02/2023 Care Team Organization Name Specialty Phone Email Start Date End Da te [facility] 2022 [facility]
--- OUTSIDE RECORDS SUMMARY | 2025-03-28 11:59 | XMS_ITS | Clinical Summary ---
Author Organization [address] Address [address] [place] [address] Phone Care Team Providers Care Algorithm Design Engineer Name Role Phone Barbara Durán MD Primary Care Prov ider Allergies No known active allergies Active Problems Problem Noted Date Diagnosed Date Intestinal malabsorption following gastrectomy 0 02/13/2019 Vitamin D deficiency 09/19/2013 Overview (09/07/2024): BMI 44.36 on 08/07/13. Immunizations Name Administration Dates Next Due Pfizer SARS-CoV-2 COVID-19, mRNA, LNP-S, preservative free 04/20/2021,03/30/2021 Tdap Tetanus diptheria acell ular pertussis (Boostrix; Adacel) 7yo and older 12/07/2022,09/08/2012 Surgical History Surgery Date Site/Laterality Comments KNEE SURGERY 2001 Left PROCEDURE: HISTORICAL KNEE SURGERY OTHER SURGICAL HISTORY PROCEDURE: ARTHROSCOPY PROCEDURE NEC GASTRIC BYPASS 06/2018 PROCEDURE: GASTRIC BYPASS FOR OBESIT; COMMENT: gastric sleeve Medical History Medical History Date Comments Vitamin D deficiency 09/19/2013 DX:Vitamin D deficiency; COMMENT: BMI 44.36 on 08/07/13. Morbid obesity with BMI of 4 0.0-44.9, adult (CMS/HCC V24, CMS/HCC V28) 01/10/2018 DX:Morbid obesity wit h BMI of 40.0-44.9, adult ([facility]) Family History Medical History Relation Name Comments Hypertension Father Diabetes Other: peptic ulcer disease Maternal Grandmother in her 90s Stroke Mother Arthritis Sister Relation Name Status Comments Father Alive dm,htn Maternal Grandfather Maternal Grandmother Mother Alive htn Paternal Grandfather Paternal Grandmother Sister Social History Tobacco Use Types Packs/Day Years Used Date Smoking Tobacco: Never Smokeless Tobacco: Never Alcohol Use Standard Drinks/Week Comments No 0 (1 standard drink = 0.6 oz pur e alcohol) Sex and Gender Information Value Date Recorded Sex Assigned at Not on file Legal Sex Male 10:47 PM EST Gender Identity Not on file Sexual Orientation Not on file Obstetrics History Last Filed Vital Signs Vital Sign Reading Time Taken Comments Blood Pressure 112/64 12/07/2023 3:01 PM EDT Pulse 60 12/07/2023 3:01 PM EDT Temperature - - Respiratory Rate - - Oxygen Saturation - - Inhaled Oxygen Concentration - - Weight 112 kg (247 lb 9.6 oz) 12/07/2023 3:01 PM EDT Height 170.2 cm (5' 7 ) 12/07/2023 3:01 PM EDT Body Mass Index 38.78 12/07/2023 3:01 PM EDT Plan of Treatment Health Maintenance Due Date Last Done Comments Hepatitis B Vaccines (1 of 3 - 19+ 3-dose series) 1993 Colorectal Cancer Screening: Colonoscopy 12/06/2022 Depression Screening 12/06/2022 HIV Screening 12/06/2022 Hepatitis C Screening 12/06/2022 Social Influencers of Health Screening 12/06/2022 Pneumococcal Vaccine: 50+ Years (1 of 1 - PCV) 2024 Zoster Vaccines (1 of 2) 2024 COVID-19 Vaccine (3 - 2023-2 5 season) 2024 04/20/2021, 03/30/2021 Influenza Vaccine (#1) 2025 Cholesterol Screening (Lipid Panel) 12/11/2027 12/10/2022 DTaP,Tdap,and Td Vaccines (3 - Td or Tdap) 12/07/2032 12/07/2022, 09/08/2012 HIB Vaccines Aged Out No longer eligi ble based on patient's age to complete this topic HPV Vaccines Aged Out No longer eligi ble based on patient's age to complete this topic Hepatitis A Vaccines Aged Out No long er eligible based on patient's age to complete this topic IPV Vaccines Aged Out No longer eligi ble based on patient's age to complete this topic MMR Vaccines Aged Out No longer eligi ble based on patient's age to complete this topic Meningococcal ACWY Vaccine Aged Out N o longer eligible based on patient's age to complete this topic Meningococcal B Vaccine Aged Out No l onger eligible based on patient's age to complete this topic RSV Immunization Patients Under 20 months Aged Out No longer eligible b ased on patient's age to complete this topic Varicella Vaccines Aged Out No longer eligible based on patient's age to complete this topic Procedures Procedure Name Priority Date/Time Associated Diagnosis Comments LIPID PANEL Routine 12/10/2022 from Last 3 Months or Most Recently Relevant to Health Maintenance Results * Lipid panel (12/10/2022) LDL/HDL Ratio 3 0 - 4 Triglycerides 48 0 - 150 mg/dL Cholesterol 147 0 - 200 mg/dL HDL 47 >=40 mg/dL LDL Cholesterol 91 0 - 100 mg/dL Blood Venous blood specimen / Unknown Historical Provider LAB BLOOD ORDERABLES Peggy l Result from Last 3 Months or Most Recently Relevant to Health Maintenance Care Teams Algorithm Design Engineer Relationship Specialty Start Date End Date Barbara Durán MD PCP - General Internal Medicine 04/12/22
--- OUTSIDE RECORDS SUMMARY | 2025-03-28 11:59 | XMS_ITS | Clinical Summary ---
Author Organization [facility] Address [address] [place] [address] Care Team Providers Care Hr Administrative Assistant Name Role Phone Barbara Triplett MD Primary Care Prov ider Allergies No known active allergies Medications Medication Sig Dispensed Refills Start Date End Date Status Cholecalciferol 1.25 MG (59169 UT) capsule Take 1 capsule by mouth once a week. 0 12/13/2022 Active acetaminophen (TYLENOL) 500 MG tablet Take 2 tablets (1,000 mg total) by mouth every 8 (eight) hours as needed for up to 60 doses. 60 tablet 0 05/02/2023 Active senna-docusate (Senna Plus) 8.6-50 MG Take 2 tablets by mouth every night at bedtime as needed for constipation (to prevent constipation after surgery while taking narcotic pain medication) for up to 30 doses. 30 tablet 0 05/02/2023 Active Social History Tobacco Use Types Packs/Day Years Used Date Smoking Tobacco: Never Passive Smoke Exposure: Never Smokeless Tobacco: Never Tobacco Cessation:Counseling Given: Not Answered Alcohol Use Standard Drinks/Week Comments Not Currently 0 (1 standard drink = 0.6 oz pur e alcohol) Sex and Gender Information Value Date Recorded Sex Assigned at Male 05/02/2023 7:11 AM EDT Gender Identity Not on file Sexual Orientation Not on file Job Start Date Occupation Industry Not on file Not on file Not on file Last Filed Vital Signs Vital Sign Reading Time Taken Comments Blood Pressure 110/70 05/02/2023 10:09 AM EDT Pulse 54 05/02/2023 10:09 AM EDT Temperature 36.1 C (97 F) 05/02/2023 9:39 AM EDT Respiratory Rate 13 05/02/2023 10:09 AM EDT Oxygen Saturation 98% 05/02/2023 10:09 AM EDT Inhaled Oxygen Concentration - - Weight 110.2 kg (243 lb) 05/02/2023 7:00 AM EDT Height 171.5 cm (5' 7.5 ) 05/02/2023 7:00 AM EDT Body Mass Index 37.5 05/02/2023 7:00 AM EDT Plan of Treatment Health Maintenance Due Date Last Done Comments Hepatitis B Vaccines (1 of 3 - 3-dose series) 1974 Hepatitis C Screening 1974 Depression Screening 1986 BMI Counseling 1992 Preventative Health Evaluation 1992 Colon Cancer Screening (Colonoscopy) 2019 Shingrix-Zoster Vaccine (1 o f 2) 2024 COVID-19 Vaccine (3 - 2023-2 5 season) 2024 04/20/2021, 03/30/2021 Influenza Vaccine (#1) 2025 DTap / Tdap / Td (3 - Td or Tdap) 12/07/2032 12/07/2022, 09/08/2012 Pneumococcal Vaccine Aged Out No long er eligible based on patient's age to complete this topic RSV Ped < 20 months Aged Out No longe r eligible based on patient's age to complete this topic Care Teams Hr Administrative Assistant Relationship Specialty Start Date End Date Barbara Triplett MD [address] [place], [place] [phone] PCP - General Internal Medicine 05/02/23
--- OUTSIDE RECORDS SUMMARY | 2025-03-28 11:59 | XMS_ITS | Clinical Summary ---
Author Organization [facility] Address [address] [facility] [address] [place] [address] Care Team Providers Care Credit Collections Clerk Name Role Phone Nika Foster MD Primary Care Provider + Allergies No known active allergies Medications sucralfate (Carafate) 1 g tablet Take 1 tablet (1 g) by mouth before breakfast, before lunch, before evening meal, and at bedtime. 90 tablet 03/06/2025 Active Multiple Vitamin (Multivitamin Adult) tablet Take 1 tablet by mouth Once per day. 30 tablet 11 03/06/2025 Active Active Problems Problem Noted Date Diagnosed Date Gastric bypass status for obesity 03/06/2025 Assessment & Plan (03/06/2025 8:10 PM EDT): 5+ years ago, need to follow-up with PCP. Advised to start vitamin supplementations once current symptoms are completely resolved Dyspepsia 03/06/2025 Assessment & Plan (03/06/2025 8:12 PM EDT): See abdominal pain as above Pain of upper abdomen 03/06/2025 Assessment & Plan (03/06/2025 8:12 PM EDT): Most likely gastritis versus gastric stump ulcer. Use sucralfate 3 times daily AC meals and switch to liquid diet including protein shakes x 1 to 2 weeks or until abdominal pain improves. Advised to soft/small portion diet and follow-up with PCP Return to clinic or go to ED if symptoms do not improve within 3 to 4 days, if he develops fever, chills or does not tolerate p.o. Encounters Date Type Department Care Team Description 03/07/2025 Telephone [facility] [address] [facility] [place], [place] [phone] Nika Foster MD New Patient appt. 03/06/2025 3:20 PM EDT Office Visit [facility] [address] [place] [phone] Nika Foster MD Pain of upper abdomen (Primary Dx); Dyspepsia; Gastric bypass status for obesity 03/06/2025 Travel from Last 3 Months Social History Tobacco Use Types Packs/Day Years Used Date Smoking Tobacco: Never Passive Smoke Exposure: Never Smokeless Tobacco: Never Tobacco Cessation:Counseling Given: Not Answered Sex and Gender Information Value Date Recorded Sex Assigned at Male 03/06/2025 2:13 PM EDT Legal Sex Male 11:34 AM EDT Gender Identity Male 03/06/2025 2:13 PM EDT Sexual Orientation Straight 03/06/2025 2: 13 PM EDT Last Filed Vital Signs Vital Sign Reading Time Taken Comments Blood Pressure 128/83 03/06/2025 3:41 PM EDT Pulse 74 03/06/2025 3:41 PM EDT Temperature 37.3 C (99.1 F) 03/06/2025 3:41 PM EDT Respiratory Rate 18 03/06/2025 3:41 PM EDT Oxygen Saturation 98% 03/06/2025 3:41 PM EDT Inhaled Oxygen Concentration - - Weight 98.4 kg (217 lb) 03/06/2025 3:41 PM EDT Height 170.2 cm (5' 7 ) 03/06/2025 3:41 PM EDT Body Mass Index 33.99 03/06/2025 3:41 PM EDT Plan of Treatment Health Maintenance Due Date Last Done Comments CT Colonography 1974 Colonoscopy 1974 Colorectal Cancer Screening 1974 Depression Screening 1974 FIT DNA/Cologuard 1974 FIT 1974 FOBT 1974 HIV Screening 1974 Lipid Panel 1974 SDOH Screening 1974 Sigmoidoscopy 1974 Disability Screening 1974 Alcohol/Substance Use Screening 1986 Family Planning (PISQ) 1989 Hepatitis C Screening 1992 Hepatitis B Vaccines (1 of 3 - 19+ 3-dose series) 1993 Pneumococcal Vaccine: 50+ Years (1 of 1 - PCV) 2024 Zoster Vaccines (1 of 2) 2024 COVID-19 Vaccine (3 - 2023-2 5 season) 2024 04/20/2021, 03/30/2021 Influenza Vaccine (#1) 2025 Tobacco Screening 03/06/2026 03/06/2025 DTaP/Tdap/Td Vaccines (3 - T d or Tdap) 12/07/2032 12/07/2022, 09/08/2012 RSV Patients and Patients Aged 60 years or older (1 - 1-dose 75+ series) 2049 HIB Vaccines Aged Out No longer eligi [...] patient's age to complete this topic Meningococcal Vaccine Aged Out No micha josette eligible based on patient's age to complete this topic RSV under 20 months Aged Out No longe r eligible based on patient's age to complete this topic Rotavirus Vaccines Aged Out No longer eligible based on patient's age to complete this topic Insurance [id number] Care Teams Credit Collections Clerk Relationship Specialty Start Date End Date Nika Foster MD [address] [place] [id number] PCP - General Internal Medicine 03/07/25
== END 2025-03-28 11:37 | disposition home or self-care (01) ==
LOC: HO.HGS 11:09
DX: Z90.49 Acquired absence of other specified parts of digestive tract (principal)
CPT/HCPCS: 99024

== ENCOUNTER → 2025-03-28 11:09 | Outpatient (BNVA) | payer SELFPAY | DX: Z90.49 Acquired absence of other specified parts of digestive tract (principal) | CPT/HCPCS: 99212 ==

== ENCOUNTER 2025-04-26 10:11 | Outpatient (AMB) | payer OTHER, SELFPAY ==
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
[2025-04-26 10:20] VITALS: BP 110/70; BMI 32.5
--- OUTSIDE RECORDS SUMMARY | 2025-04-26 10:21 | XMS_ITS | Clinical Summary ---
Author Organization [facility] Address [address] [facility] [address] [place] [address] Care Team Providers Care Track Moving Machine Operator Name Role Phone Nika Foster MD Primary [...] Type Department Care Team Description 03/07/2025 Telephone [facility] [address] [facility] [facility] [place], [place] [phone] Nika Foster MD New Patient appt. 03/06/2025 3:20 PM EDT Office Visit [facility] [address] [place] [phone] Nika Foster MD Pain of upper abdomen [...] patient's age to complete this topic Insurance [id number] Care Teams Track Moving Machine Operator Relationship Specialty Start Date End Date Nika Foster MD [address] [place] [phone] PCP - General Internal Medicine 03/07/25
--- OUTSIDE RECORDS SUMMARY | 2025-04-26 10:21 | XMS_ITS | Clinical Summary ---
Author Organization [address] Address [address] [place] [address] Phone Care Team Providers Care Candy Feeder Name Role Phone Barbara Durán MD Primary [...] obesity wit h BMI of 40.0-44.9, adult ([facility]) Family History Medical History Relation Name Comments [...] series) 1993 Colorectal Cancer Screening: Colonoscopy 12/06/2022 HIV Screening 12/06/2022 Hepatitis C Screening 12/06/2022 Social Influencers of Health Screening 12/06/2022 Pneumococcal Vaccine: 50+ Years (1 of 1 - PCV) 2024 Zoster Vaccines (1 of 2) 2024 COVID-19 Vaccine ( - 2023-2 5 season) 2024 04/20/2021, 03/30/2021 Depression Screening 09/12/2024 Influenza Vaccine (#1) 2025 Cholesterol Screening (Lipid [...] Recently Relevant to Health Maintenance Care Teams Candy Feeder Relationship Specialty Start Date End Date Barbara Durán MD PCP - General Internal Medicine 04/12/22
--- OUTSIDE RECORDS SUMMARY | 2025-04-26 10:21 | XMS_ITS | Clinical Summary ---
Author Organization [facility] Address [address] [place] [address] Care Team Providers Care Soldering Machine Operator Automatic Name Role Phone Barbara Triplett MD Primary Care Prov ider Allergies No known active allergies Medications Medication Sig Dispensed Refills Start Date End Date Status Cholecalciferol 1.25 MG (32758 UT) capsule Take 1 capsule by mouth [...] age to complete this topic Care Teams Soldering Machine Operator Automatic Relationship Specialty Start Date End Date Barbara Triplett MD [address] [place], [place] [phone] PCP - General Internal Medicine 05/02/23
== END 2025-04-26 10:37 | disposition home or self-care (01) ==
LOC: HO.HGS 10:12
PROVIDERS: Visit Provider Surgery
DX: Z90.49 Acquired absence of other specified parts of digestive tract (principal); K81.0 Acute cholecystitis; K80.50 Calculus of bile duct without cholangitis or cholecystitis without obstruction; K85.10 Biliary acute pancreatitis without necrosis or infection
CPT/HCPCS: 99024

== ENCOUNTER → 2025-04-26 10:11 | Outpatient (BNVA) | payer OTHER, SELFPAY | PROVIDERS: Visit Provider Surgery | DX: K80.50 Calculus of bile duct without cholangitis or cholecystitis without obstruction (principal); K85.10 Biliary acute pancreatitis without necrosis or infection; Z90.49 Acquired absence of other specified parts of digestive tract | CPT/HCPCS: 99212 ==